=== PATIENT | female | born 1975 | race Caucasian/White ===

== ENCOUNTER 2019-03-28 09:33 | Day surgery (SDC) | payer BC ==
[2019-03-25 15:46] VITALS: BMI 29.5
[~2019-03-28 09:33] MED LIST: LACTATED RINGERS 1,000 ML IV SCH; LIDOCAINE 1% 20 ML VIAL (10MG/ML) FOR IV START INTRADERMA PRN
[2019-03-28 09:53] VITALS: RESP 16; TEMP 97
[2019-03-28] MEDS ORDERED: SUCCINYLCHOLINE CHLORIDE 100 MG/5 ML SYR IV ONE (11:05)
[2019-03-28] MEDS ORDERED: GLYCOPYRROLATE 0.2 MG/ML 2 ML VIAL ONE (11:05)
[2019-03-28] MEDS ORDERED: PROPOFOL 10 MG/ML 20 ML VIAL IV ONE (11:05)
[2019-03-28] MEDS ORDERED: fentaNYL (PF) 50 MCG/ML 2 ML AMP IV ONE (12:04)
--- NOTE | 2019-03-28 12:09 | P.PCN ---
Date of Procedure: 03/28/19 Procedure(s) Performed: Brief history: Patient is a pleasant 43-year-old white female scheduled for an elective upper endoscopy as well as colonoscopy as a part of evaluation of epigastric pain for the last few months duration. She was also diagnosed with Crohn's ileitis at age 24 and presently remains in clinical remission. She is been having intermittent rectal bleeding. Procedure performed: Esophagogastroduodenoscopy with biopsy Colonoscopy with biopsy Preoperative diagnosis: Gastric pain History of Crohn's ileitis Intermittent rectal bleeding Anesthesia: MAC Procedure: After informed consent was obtained from the patient was brought into the endoscopy unit and IV sedation was administered by anesthesia under continuous monitoring. Initially upper endoscopy was done. The Olympus GF 160 video endoscope was inserted inserted into the mouth and esophagus intubated without any difficulty and was gradually advanced into the stomach and duodenum and carefully examined. The bulb and second part of the duodenum appeared normal. The scope was then withdrawn into the stomach adequately insufflated with air and upon careful examination the antrum and mild gastritis and biopsies were done from this area. The body, cardia and fundus appeared normal. The scope was then withdrawn into the esophagus. small sliding Hiatal hernia noted. The GE junction was located at 40 cm to the incisors. There were linear erosions in the distal esophagus consistent with LA grade B reflux esophagitis. Also there was a 1 cm segment of Rowley's appearing mucosa just proximal to the GE junction that was biopsied. Rest of the esophagus appeared normal. Patient tolerated the procedure well. At this time the patient continued to remain sedation. Initial digital rectal examination was normal. Olympus CF 160 video colonoscope was then inserted into the rectum and gradually advanced to the cecum without any difficulty. Careful examination was performed as the scope was gradually being withdrawn. The prep was excellent. ileum was intubated and 20 cm visualized appeared normal. The cecum, ascending colon, transverse colon, descending colon, sigmoid colon and rectum appeared normal. Retroflexion was performed in the rectum and no lesions were noted. random biopsies were done from the terminal ileum, ascending and descending colon. Patient tolerated the procedure well. Impression: 1. Upper endoscopy revealed mild antral gastritis, small hiatal hernia, LA grade B reflux esophagitis and short segment Rowley's esophagus 2. Colonoscopy was essentially within normal limits with no evidence of colitis or colorectal neoplasia Recommendations: Findings of this examination were discussed with the patient as well as her family. She was advised to follow with the biopsy sites. She'll be seen in office in 2-3 weeks.
[2019-03-28 12:41] VITALS: BP 124/85; PULSE 64
== END 2019-03-28 13:03 | disposition home or self-care (01) ==
LOC: ORWHC2ENDO 09:33
PROVIDERS: ATTEND Internal Medicine Gastroenterology
DX: K50.011 Crohn's disease of small intestine with rectal bleeding (principal); K63.89 Other specified diseases of intestine; K29.50 Unspecified chronic gastritis without bleeding; K21.0 Gastro-esophageal reflux disease with esophagitis; K22.70 Barrett's esophagus without dysplasia; K44.9 Diaphragmatic hernia without obstruction or gangrene; M79.7 Fibromyalgia; Z91.040 Latex allergy status
CPT/HCPCS: 88305; 45380; 43239; J3010; J0330; J2704

== ENCOUNTER → 2020-07-23 | Outpatient (CLI) | payer BC ==
[2020-07-23 10:30] VITALS: BP 128/85; PULSE 82; RESP 18; TEMP 97.7
--- NOTE | 2020-07-23 10:53 | P.GSHP ---
History of Present Illness H&P Date: 07/23/20 Chief Complaint: left breast cyst Angeles is a 44 year old white female seen in consultation for DR. Bergman regarding a left breast cyst. A bilateral mammogram was performed on . This revealed a lobulated mass at the retroareolar region of the left breast 12 o'clock position measuring 3.1 cm with relatively well-defined borders. An ultrasound was then performed on 05/1820 which revealed a 4.3 x 2.9 cm cystic lesion at the 12 o'clock position. Additional smaller cyst at 1.7 cm appears to be close to this. The patient did not have any lesions noted in the right breast on her mammogram. The patient states that she was able to feel this for approximately 2 months in the lesion is the lead to giving the radiographic evaluation. She does not feel any other lumps masses or nodules in either breast. In the remote past the patient has been told she had cystic disease after ultrasound evaluation. The patient states she has bilateral breast discomfort just before her menstrual cycle started. Additionally she has discomfort in the left breast at the site of the lump. She is not complaining of any nipple discharge or skin changes. Caffeine: Tea per day as well as several bottles of pepsi nicotine: 1/2 PPD for > 30 years lo-bromine: daily hormone: none BCP: none Family history: Maternal great grandfather: Stomach cancer Hormonal history: Menarche:14 [id number]: 2, breast fed: yes, age at first : 16 periods: hysterectomy done for Crohn's disease at 36, left her ovaries BCP: 2 years, used to get injections as well Surgical history: Hysterectomy: Done secondary to Crohn's disease and she would have pain and was on able to detect if it was coming from her uterus from her bowel Exploratory laparotomies All of her teeth removed Tonsillectomy Cystic jaw Medical history: chroans disease reflux fibromyalgia Gastritis gluten intolerance Social History: nicotine: One half pack per day for greater than 30 years Alcohol: Negative Drugs: Marijuana, three times/week - Constitutional Constitutional: Reports sweats - EENT Eyes: bilateral blurred vision, bilateral pain Ears: bilateral: decreased hearing Ears, nose, mouth and throat: Reports headache - Breasts Breasts: bilateral: as per HPI - Cardiovascular Cardiovascular: Denies chest pain, Denies shortness of breath - Respiratory Comment: smoker Respiratory: Reports cough - Gastrointestinal Comment: chroans disease, GERD - Genitourinary (Female) Genitourinary: Denies dysuria, Denies hematuria - Menstruation Menstruation: Reports post hysterectomy - Musculoskeletal Comment: Fibromyalgia - Integumentary Integumentary: Denies pruritus, Denies rash - Neurological Neurological: Denies numbness, Denies weakness - Psychiatric Comment: Seasonal affective disorder, chronic fatigue - Endocrine Endocrine: Reports fatigue - Hematologic/Lymphatic Comment: none - Allergic/Immunologic Allergic/Immunologic: Reports as per HPI Past Medical History Past Medical History: Fibromyalgia, GERD/Reflux, Osteoarthritis (OA) Additional Past Medical History / Comment(s): Hepatitis A (19 yrs old), IBS, Crohns, blood in stool, nausea History of Any Multi-Drug Resistant Organisms: None Reported Past Surgical History: Hysterectomy, Tonsillectomy Additional Past Surgical History / Comment(s): Exploratory, EGD's and Colonoscopies Past Anesthesia/Blood Transfusion Reactions: No Reported Reaction Past Psychological History: Depression Additional Psychological History / Comment(s): S.A.D. Past Alcohol Use History: None Reported Additional Past Alcohol Use History / Comment(s): SMOKES 1 PPD, STARTED SMOKING AGE 11. Past Drug Use History: Marijuana Additional Drug Use History / Comment(s): CURRENT MARIJUANA USE - Past Family History Mother Family Medical History: No Reported History Medications and Allergies Home Medications Medication Instructions Recorded Confirmed Type Calcium (Unknown Dose) 1 tab PO DAILY 03/25/19 07/23/20 History Magnesium 200 mg PO DAILY 03/25/19 07/23/20 History Multivitamins, Thera [Multivitamin 1 tab PO DAILY 03/25/19 07/23/20 History (formulary)] Sulphur-3-6-9 1 cap PO DAILY 03/25/19 07/23/20 History Vitamin B-12 Injection 1 dose SQ QMONTH 03/25/19 07/23/20 History Vitamin D (Unknown Dose) 1 cap PO DAILY 03/25/19 07/23/20 History Ascorbic Acid [Vitamin C] 500 mg PO DAILY 07/23/20 07/23/20 History Omeprazole 40 mg PO DAILY 07/23/20 07/23/20 History Turmeric Root Extract [Turmeric] 500 mg PO DAILY 07/23/20 07/23/20 History Vitamin E 400 unit PO DAILY 07/23/20 07/23/20 History buPROPion HCL [Wellbutrin XL] 300 mg PO DAILY 07/23/20 07/23/20 History Allergies Allergy/AdvReac Type Severity Reaction Status Date / Time latex Allergy Unknown SWELLING, Verified 07/23/20 10:25 RASH, ITCHING Surgical - Exam BMI 34.4 - General no distress - Eyes normal ocular movement - ENT normal pinna, normal nares - Neck no masses, trachea midline - Respiratory normal expansion, normal respiratory effort, clear to auscultation - Cardiovascular Rhythm: regular Heart Sounds: normal: S1, S2 - Abdomen Abdomen: soft, bowel sounds - Integumentary normal turgor, multiple tattoos - Neurologic no disoriented, no combative - Musculoskeletal normal gait, normal posture - Psychiatric oriented to time, oriented to person, oriented to place, speech is normal, memory intact Breast Exam: BRA: 36C inspection: Grade 2 ptosis bilateral Palpation: Right breast: Multi-positional exam fibrocystic changes, no dominant masses or nodules of concern Right axilla: No adenopathy of concern Left breast: Multiple positional exam approximately 4 cm lesion at 12 o'clock position appears to be smooth-walled and most likely consistent with a cyst no other dominant masses or nodules of concern Left axilla: No adenopathy of concern Results Mammogram and ultrasound results reviewed Assessment and Plan Assessment: Impression: chroans disease reflux fibromyalgia Gastritis gluten intolerance Mass left breast 12 o'clock position Radiographic abnormality left breast 12 o'clock position most likely consistent with cyst Plan: 1. Aspiration lesion at 12:00 2. follow up 2 weeks 3. Hormone levels to determine perimenopausal status CC: Dr. Bergman encounter 45 minutes time spent in reviewing patient's records, physical examination, and counseling
--- NOTE | 2020-07-23 10:56 | P.PCN ---
Date of Procedure: 07/23/20 Preoperative Diagnosis: Mass/ cystic lesion left breast at 12:00 Postoperative Diagnosis: Same Procedure(s) Performed: Cyst aspiration 12:00 left breast Surgeon: Leyla Mojica Pathology: other (Fluid sent to pathology) Condition: stable Disposition: same day Indications for Procedure: Tender cystic lesion 12:00 left breast Description of Procedure: The area of concern in the left breast was prepped using alcohol. A 22-gauge needle and it 12 mL syringe was inserted into the area of concern. 10 mL of dark green fluid was obtained with complete resolution of the mass. Patient tolerated the procedure in stable condition. The fluid is sent for cytology. The second lesion noted on ultrasound was not palpated and the patient is going to be follow clinically at this time. The second lesion likewise appeared to be a simple cyst.
[2020-07-23 23:20] LABS: Luteinizing Hormone 4.4 mIU/mL; T4, Free (Free Thyroxine) 1.1 ng/dL (0.80-1.80)
[2020-07-23 23:21] LABS: Follicle Stimulating Hormone 3.4 mIU/mL
== END | disposition home or self-care (01) ==
LOC: WWCWWP 09:53
PROVIDERS: ATTEND Surgery
DX: N64.9 Disorder of breast, unspecified (principal)
CPT/HCPCS: 36415; 82670; 83001; 83002; 84144; 84439; 84443; 84481

== ENCOUNTER → 2020-08-06 | Outpatient (CLI) | payer BC ==
[2020-08-06 12:00] VITALS: BP 148/90; PULSE 75; RESP 18; TEMP 97.8
--- NOTE | 2020-08-06 12:15 | P.PN ---
Progress Note - Text Progress Note Date: 08/06/20 This is a 44-year-old white female who was seen on 2520 for left breast cyst evaluation. At that time a cyst was aspirated from the 12 o'clock position and was approximately 4 cm in size. Approximately 10 mL of fluid was removed with resolution of the cystic lesion. The patient states that since that time she still feels tenderness in the area, but the cyst is gone. Patient states she is likewise having some tenderness near the area of aspiration extending into her axilla. nicotine: 15 cigarets/day caffeine: 30 0z/day was taking double this Additionally the patient had laboratory studies done these include: Free T3 colon which is 3.4 reference range 2.3-4.2 Free T4: 1.1 or reference range 0.8-1.8 TSH: 2.23 Reference range 0.35-5.5 FSH 3.4 Reference range and postmenopausal females would be 16.7-113.6 Luteinizing hormone: 4.4 Reference range and postmenopausal females 15.9-54 Estradiol 314 Postmenopausal female 0-32 Progesterone: 0.4 postmenopausal 0-0.73 Physical examination: Lungs: Clear Heart: Regular rate and rhythm Left breast evaluation with particular attention to the area where the cyst was aspirated reveals fibrocystic changes but no recurrence of this the cyst at the 12 o'clock position Impression/plan: 1. I've reviewed with the patient and her her hormone levels these are not consistent with a postmenopausal profile 2. Fibrocystic breast changes no recurrence of the cyst which was aspirated on 2520 3. Repeat left breast ultrasound in 4 months with a physician exam at that time CC: Dr. Bergman
== END | disposition home or self-care (01) ==
LOC: WWCWWP 11:43
PROVIDERS: ATTEND Surgery
DX: N60.12 Diffuse cystic mastopathy of left breast (principal); F17.211 Nicotine dependence, cigarettes, in remission

== ENCOUNTER → 2020-12-16 | Outpatient (CLI) | payer BC ==
--- NOTE | 2020-12-17 11:30 | USB ---
Reason for exam: additional evaluation requested from prior study. Physical Findings: Nurse Summary: Patient complains of bilateral breast tenderness, tender lump left breast 12 o'clock with shooting pain to left axilla (nurse mj). US Breast LT Prior study comparison: June 04, 2020, mammogram. Left complete breast ultrasound includes all four quadrants, the retroareolar region and axilla. Finding demonstrates a 3.3 x 2.9 x 1.2cm benign appearing lobular, cystic lesion at 12 o'clock, a 1.7 x 1.4 x 1.1cm benign appearing, lobular, cystic lesion at 2 o'clock, a 1.2 x 1.2 x 0.6cm benign appearing, oval, cystic lesion at 2 o'clock, a 0.4 x 0.4 x 0.5cm probably benign complex, cystic cluster at 8 o'clock and a 1.8 x 1.2 x 0.9cm likely reactive lymph node at the axilla. These results were verbally communicated with the patient and result sheet given to the patient on 12/16/20. ASSESSMENT: Probably benign, BI-RAD 3 RECOMMENDATION: Ultrasound of the left breast in 6 months. Follow-up diagnostic mammogram of both breasts in 6 months. Manage on a clinical basis with regard to pain.
== END | disposition home or self-care (01) ==
LOC: RADUSWWP 08:01
PROVIDERS: ATTEND Surgery
DX: N60.02 Solitary cyst of left breast (principal)

== ENCOUNTER → 2020-12-17 | Outpatient (CLI) | payer BC ==
[2020-12-17 16:07] VITALS: BP 129/87; PULSE 82; RESP 18; TEMP 97.8
--- NOTE | 2020-12-17 16:32 | P.PN ---
Subjective Progress Note Date: 12/17/20 Principal diagnosis: Left breast pain Angeles is a 44 year old white female initially seen in consultation for DR. Bergman regarding a left breast cyst. A bilateral mammogram was performed on . This revealed a lobulated mass at the retroareolar region of the left breast 12 o'clock position measuring 3.1 cm with relatively well-defined borders. An ultrasound was then performed on 05/1820 which revealed a 4.3 x 2.9 cm cystic lesion at the 12 o'clock position. Additional smaller cyst at 1.7 cm appears to be close to this. The patient did not have any lesions noted in the right breast on her mammogram. She underwent aspiration of the lesion and 10 cc of fluid was removed with resolution of the cyst. She had an ultrasound done on 12-16-20 of the left breast which showed multiple cysts and was recommended to have a repeat ultrasound in 6 months. The patient states that she can feel the 12:00 lesion in the left breast which was aspirated in the past. She does not feel any other lumps masses or nodules that she is concerned about in her breast. The patient had a repeat ultrasound of the left breast and 7120 which revealed multiple cyst as well as a 3.3 x 2.9 cm lobular cystic lesion at 12:00. Additionally likely reactive lymph node was noted in the axilla. This was benign BIRADS 3 and repeat ultrasound in 6 months was recommended. Caffeine: Tea per day as well as several bottles of pepsi nicotine: 1/2 PPD for > 30 years lo-bromine: daily hormone: none BCP: none Family history: Maternal great grandfather: Stomach cancer Hormonal history: Menarche:14 [id number]: 2, breast fed: yes, age at first : 16 periods: hysterectomy done for Crohn's disease at 36, left her ovaries BCP: 2 years, used to get injections as well Surgical history: Hysterectomy: Done secondary to Crohn's disease and she would have pain and was on able to detect if it was coming from her uterus from her bowel Exploratory laparotomies All of her teeth removed Tonsillectomy Cystic jaw Medical history: chroans disease reflux fibromyalgia Gastritis gluten intolerance Social History: nicotine: One half pack per day for greater than 30 years Alcohol: Negative Drugs: Marijuana, three times/week - Constitutional Constitutional: Reports sweats - EENT Eyes: bilateral blurred vision, bilateral pain Ears: bilateral: decreased hearing Ears, nose, mouth and throat: Reports headache - Breasts Breasts: bilateral: as per HPI - Cardiovascular Cardiovascular: Denies chest pain, Denies shortness of breath - Respiratory Comment: smoker Respiratory: Reports cough - Gastrointestinal Comment: chroans disease, GERD - Genitourinary (Female) Genitourinary: Denies dysuria, Denies hematuria - Menstruation Menstruation: Reports post hysterectomy - Musculoskeletal Comment: Fibromyalgia - Integumentary Integumentary: Denies pruritus, Denies rash - Neurological Neurological: Denies numbness, Denies weakness - Psychiatric Comment: Seasonal affective disorder, chronic fatigue - Endocrine Endocrine: Reports fatigue - Hematologic/Lymphatic Comment: none - Allergic/Immunologic Allergic/Immunologic: Reports as per HPI Objective - Vital Signs Vital signs: Vital Signs Temp 97.8 F 12/17/20 16:02 Pulse 82 12/17/20 16:02 Resp 18 12/17/20 16:02 BP 129/87 12/17/20 16:02 Pulse Ox 96 12/17/20 16:02 Intake & Output 12/16/20 12/17/20 12/17/20 18:59 06:59 18:59 Weight 90.718 kg - Exam BMI 29.5 - Constitutional General appearance: Present: average body habitus - EENT Eyes: Present: EOMI ENT: Present: hearing grossly normal - Neck Neck: Present: normal ROM - Respiratory Respiratory: bilateral: CTA - Cardiovascular Rhythm: regular Heart sounds: normal: S1, S2 - Integumentary Integumentary: Present: normal turgor - Musculoskeletal Musculoskeletal: Present: gait normal - Psychiatric Psychiatric: Present: A&O x's 3, appropriate affect, intact judgment & insight - Additional findings Additional findings: Breasts: BRA: 38C inspection: Grade 2 ptosis bilaterally Palpation: Right breast: Multi-positional exam fibrocystic changes, no dominant masses or nodules of concern Right axilla: No adenopathy of concern Left breast: Multi-positional exam fibrocystic changes, dense breasts, tender at the 12 o'clock position the cystic lesion noted on ultrasound is not clearly palpated Left axilla: No adenopathy of concern Assessment and Plan Assessment: Impression: chroans disease reflux fibromyalgia Gastritis gluten intolerance Fibrocystic breast changes Recent left breast ultrasound cystic changes Breast pain Lifestyle modification possible with stopping smoking and decreasing further caffeine intake Consider primrose oil Plan: 1. Ultrasound-guided aspiration of breast cysts as these are tender and symptomatic on the left side Follow-up after ultrasound-guided aspiration Patient is going to consider decreasing caffeine intake and stopping smoking Patient is going to consider primrose oil CC: Dr. Euceda
== END ==
LOC: WWCWWP 15:18
PROVIDERS: ATTEND Surgery
DX: N60.12 Diffuse cystic mastopathy of left breast (principal); K50.90 Crohn's disease, unspecified, without complications; K21.9 Gastro-esophageal reflux disease without esophagitis; M79.7 Fibromyalgia; K29.70 Gastritis, unspecified, without bleeding; K90.41 Non-celiac gluten sensitivity; F17.210 Nicotine dependence, cigarettes, uncomplicated; Z91.040 Latex allergy status

== ENCOUNTER → 2021-01-07 | Day surgery (SDC) | payer BC ==
[2021-01-07 10:10] VITALS: RESP 18
--- NOTE | 2021-01-07 12:41 | USB ---
EXAMINATION TYPE: US breast aspiration single LT DATE OF EXAM: 01/07/2021 COMPARISON: 12/16/2020 CLINICAL HISTORY: Painful cyst. Aspiration requested. Findings: Left breast was scanned with ultrasound and a simple cyst is again seen at 12:00 which corresponds to the patient's area of pain. The risks, benefits and alternatives were slightly to the patient and in formed consent was obtained. The patient was prepped and draped in the normal sterile fashion. Lidocaine was administered for loca l analgesia. Under direct fluoroscopic guidance, a 14-gauge needle was inserted into the cyst and 7 m L of mckeon clear fluid was aspirated and then discarded. Patient tolerated the examination without immediate complication. IMPRESSION: Successful aspiration of a simple cyst in the left breast at 12:00. Clinical follow-up is recommended . Patient is due for her bilateral mammogram in May 2021. BI-RADS 2, benign
[2021-01-07 13:04] VITALS: BP 133/84; PULSE 63; TEMP 97.7
== END ==
LOC: RADUSWWP 09:32
PROVIDERS: ATTEND Surgery
DX: N60.02 Solitary cyst of left breast (principal)
CPT/HCPCS: 19000; 76942; J2001

== ENCOUNTER → 2021-02-25 | Outpatient (CLI) | payer BC ==
[2021-02-25 11:13] VITALS: BP 145/74; PULSE 100; RESP 18; TEMP 97.8
--- NOTE | 2021-02-25 11:24 | P.PN ---
Subjective Progress Note Date: 02/25/21 Left breast pain Angeles is a 45 year old white female initially seen in consultation for DR. Bergman regarding a left breast cyst. A bilateral mammogram was performed on . This revealed a lobulated mass at the retroareolar region of the left breast 12 o'clock position measuring 3.1 cm with relatively well-defined borders. An ultrasound was then performed on 05/1820 which revealed a 4.3 x 2.9 cm cystic lesion at the 12 o'clock position. Additional smaller cyst at 1.7 cm appears to be close to this. The patient did not have any lesions noted in the right breast on her mammogram. She underwent aspiration of the lesion and 10 cc of fluid was removed with resolution of the cyst. She had an ultrasound done on 12-16-20 of the left breast which showed multiple cysts and was recommended to have a repeat ultrasound in 6 months. The patient states that she can feel the 12:00 lesion in the left breast which was aspirated in the past. She does not feel any other lumps masses or nodules that she is concerned about in her breast. The patient had a repeat ultrasound of the left breast and 7120 which revealed multiple cyst as well as a 3.3 x 2.9 cm lobular cystic lesion at 12:00. Additionally likely reactive lymph node was noted in the axilla. This was benign BIRADS 3 and repeat ultrasound in 6 months was recommended. The patient had a cyst aspiration on of the lesion at the 12 o'clock position. The specimen was mckeon in nature and the fluid was not sent for cytology. Approximately 7 mL of fluid was removed. The patient states that there was recurrent within several weeks and is painful again at this time. This is the second time that this cyst has been aspirated. The pain is worse today before her menstrual periods starts. Patient has lost 14 pounds. She has stopped all caffeine. She has cut back on her cigarette smoking to approximately 10 cigarettes per day and despite all of this the cyst recurred. The pain is constant in nature and wakes her up at night. It does not spread anyplace. The pain is isolated to the left breast greatest in the 12 o'clock position. Caffeine: Tea per day as well as several bottles of pepsi nicotine: 1/2 PPD for > 30 years lo-bromine: daily hormone: none BCP: none Family history: Maternal great grandfather: Stomach cancer Hormonal history: Menarche:14 [id number]: 2, breast fed: yes, age at first : 16 periods: hysterectomy done for Crohn's disease at 36, left her ovaries BCP: 2 years, used to get injections as well Surgical history: Hysterectomy: Done secondary to Crohn's disease and she would have pain and was on able to detect if it was coming from her uterus from her bowel Exploratory laparotomies All of her teeth removed Tonsillectomy Cystic jaw Medical history: chroans disease reflux fibromyalgia Gastritis gluten intolerance Social History: nicotine: One half pack per day for greater than 30 years Alcohol: Negative Drugs: Marijuana, three times/week - Constitutional Constitutional: Reports sweats - EENT Eyes: bilateral blurred vision, bilateral pain Ears: bilateral: decreased hearing Ears, nose, mouth and throat: Reports headache - Breasts Breasts: bilateral: as per HPI - Cardiovascular Cardiovascular: Denies chest pain, Denies shortness of breath - Respiratory Comment: smoker Respiratory: Reports cough - Gastrointestinal Comment: chroans disease, GERD - Genitourinary (Female) Genitourinary: Denies dysuria, Denies hematuria - Menstruation Menstruation: Reports post hysterectomy - Musculoskeletal Comment: Fibromyalgia - Integumentary Integumentary: Denies pruritus, Denies rash - Neurological Neurological: Denies numbness, Denies weakness - Psychiatric Comment: Seasonal affective disorder, chronic fatigue - Endocrine Endocrine: Reports fatigue - Hematologic/Lymphatic Comment: none - Allergic/Immunologic Allergic/Immunologic: Reports as per HPI Objective - Exam BMI 33.2 - Constitutional General appearance: Present: cooperative - EENT ENT: Present: hearing grossly normal - Neck Neck: Present: normal ROM - Respiratory Respiratory: bilateral: CTA - Cardiovascular Rhythm: regular Heart sounds: normal: S1, S2 - Integumentary Integumentary: Present: normal turgor - Musculoskeletal Musculoskeletal: Present: gait normal - Psychiatric Psychiatric: Present: A&O x's 3, appropriate affect, intact judgment & insight - Additional findings Additional findings: Breast examination: Block: C 36 Inspection: Grade 2 ptosis bilateral Palpation: Right breast: Fibrocystic changes no dominant masses or nodules of concern Right axilla: No adenopathy of concern Left breast: Multi-positional exam fibrocystic changes, dense breast increased tenderness 12 o'clock position Left axilla: No adenopathy of concern Assessment and Plan Assessment: Impression: chroans disease reflux fibromyalgia Gastritis gluten intolerance breast pain plan: 1. Patient is going to modify her lifestyle and stop smoking 2. Patient will follow after mammogram 3. At this time the patient has increased discomfort in the left breast at the 12 o'clock position consistent with the area where she has fibrocystic change, I believe that this is all fibrocystic disease in nature and although the cyst has recurred twice and she may be a candidate for resection she is going to stop smoking prior to this 4. primrose oil 5. bilateral mammogram and ultrasound in May with appointment
== END ==
LOC: WWCWWP 10:58
PROVIDERS: ATTEND Surgery
DX: N64.4 Mastodynia (principal); K50.90 Crohn's disease, unspecified, without complications; K21.9 Gastro-esophageal reflux disease without esophagitis; M79.7 Fibromyalgia; K29.70 Gastritis, unspecified, without bleeding; K90.41 Non-celiac gluten sensitivity; F17.210 Nicotine dependence, cigarettes, uncomplicated; Z91.040 Latex allergy status; Z91.048 Other nonmedicinal substance allergy status

== ENCOUNTER 2022-05-24 15:29 | Emergency (ER) | payer BC ==
[2022-05-24 16:04] VITALS: TEMP 98.4
[2022-05-24] MEDS ORDERED: ONDANSETRON 4 MG/2 ML VIAL IVP STA (19:49)
[2022-05-24] MEDS ORDERED: KETOROLAC 15 MG/ML 1 ML VIAL IVP STA (19:49)
[2022-05-24] MEDS ORDERED: SODIUM CHLORIDE 0.9% 1,000 ML IV STA (19:49)
[2022-05-24] MEDS ORDERED: MORPHINE SULFATE 4 MG/ML SYRINGE IV STA (19:49)
--- NOTE | 2022-05-24 19:55 | ED ---
Abdominal Pain HPI - General Chief Complaint: Abdominal Pain Stated Complaint: Bowl Obstruction Time Seen by Provider: 05/24/22 19:40 Source: patient, RN notes reviewed Mode of arrival: ambulatory Limitations: no limitations - History of Present Illness Initial Comments: This is a 46-year-old female who presents to the emergency department for abdominal pain. Patient does have a history of Crohn's disease, and states that she has not had a flareup in several years. The pain is primarily around the umbilicus. States that the pain has been there for 1 month and she feels like something is "shooting out of her stomach". Over the last month, she has also had increasing nausea, bloating, and constipation. States that she usually has 4 bowel movements a day, however she has not had a bowel movement in 2-3 days. Prior to this, she was only going very small amounts. She has tried [id number] enemas and laxatives with little to no relief. She is not currently being treated for the Crohn's disease. She used to see Dr. Epstein, however she does not feel like they got along well and would like to find a different elementary special education teacher. Denies any fevers, chills, sore throat, cough, dyspnea, chest pain, palpitations, diarrhea, back pain, or headaches. MD Complaint: abdominal pain Onset/Timin -: month(s) Location: periumbilical Associated Symptoms: nausea, vomiting, constipation - Related Data Home Medications Medication Instructions Recorded Confirmed Calcium (Unknown Dose) 1 tab PO DAILY 03/25/19 02/25/21 Magnesium 200 mg PO DAILY 03/25/19 02/25/21 Multivitamins, Thera [Multivitamin 1 tab PO DAILY 03/25/19 02/25/21 (formulary)] Whitwell-3-6-9 1 cap PO DAILY 03/25/19 02/25/21 Vitamin B-12 Injection 1 dose SQ QMONTH 03/25/19 02/25/21 Vitamin D (Unknown Dose) 1 cap PO DAILY 03/25/19 02/25/21 Ascorbic Acid [Vitamin C] 500 mg PO DAILY 07/23/20 02/25/21 Omeprazole 40 mg PO DAILY 07/23/20 02/25/21 Vitamin E 400 unit PO DAILY 07/23/20 02/25/21 Previous Rx's Medication Instructions Recorded Ketorolac [Toradol] 10 mg PO Q6HR PRN #20 tab 05/24/22 Metoclopramide [Reglan] 10 mg PO ACHS PRN #20 tab 05/24/22 Ondansetron Odt [Zofran Odt] 4 mg PO Q8HR PRN #20 tab 05/24/22 Allergies Allergy/AdvReac Type Severity Reaction Status Date / Time latex Allergy Unknown SWELLING, Verified 05/24/22 16:04 RASH, ITCHING adhesive tape AdvReac Mild Rash/Hives Verified 05/24/22 16:04 Review of Systems ROS Statement: Those systems with pertinent positive or pertinent negative responses have been documented in the HPI. ROS Other: All systems not noted in ROS Statement are negative. Past Medical History Past Medical History: Fibromyalgia, GERD/Reflux, Osteoarthritis (OA) Additional Past Medical History / Comment(s): Hepatitis A (19 yrs old). IBS & Crohns & gastritis History of Any Multi-Drug Resistant Organisms: None Reported Past Surgical History: Hysterectomy, Tonsillectomy Additional Past Surgical History / Comment(s): Exploratory EGD's and Colonoscopies Past Anesthesia/Blood Transfusion Reactions: No Reported Reaction Past Psychological History: Depression Smoking Status: Current every day smoker Past Alcohol Use History: Occasional Past Drug Use History: Marijuana - Past Family History Mother Family Medical History: No Reported History General Exam Limitations: no limitations General appearance: alert, anxious, in distress Head exam: Present: atraumatic, normocephalic, normal inspection Respiratory exam: Present: normal lung sounds bilaterally. Absent: respiratory distress, wheezes, rales, rhonchi, stridor Cardiovascular Exam: Present: regular rate, normal rhythm, normal heart sounds. Absent: systolic murmur, diastolic murmur, rubs, gallop, clicks GI/Abdominal exam: Present: soft, tenderness (Periumbilical), hypoactive bowel sounds. Absent: distended Neurological exam: Present: alert, oriented X3, CN II-XII intact Psychiatric exam: Present: normal affect, normal mood Skin exam: Present: warm, dry, intact, normal color. Absent: rash Course Vital Signs 05/24/22 05/24/22 16:01 23:26 Temperature 98.4 F Pulse Rate 85 69 Respiratory 16 15 Rate Blood Pressure 144/80 127/68 O2 Sat by Pulse 96 100 Oximetry Medical Decision Making - Medical Decision Making This is a 46-year-old female who presents to the emergency department for abdominal pain. Lab work reveals leukocytosis and was otherwise nonactionable. Urinalysis negative for signs of infection. Computed tomography scan of the abdomen and pelvis obtained. On my interpretation she does have diffuse stool throughout with no evidence of obstruction, dilation of the bowels, or bowel wall thickening. Findings discussed with the patient and ED attending, in that her symptoms are most likely related to constipation. She is instructed to increase her fiber and fluid intake. Patient does note that she walks 5,000- 10,000 steps each day, and I encouraged her to continue to do so, and increase her activity as tolerated. Her symptoms were managed in the emergency department and she was given GoLYTELY to go home with. Instructions on how to use this were reviewed with the patient. Prescription for Zofran and Reglan provided. Advised that the Reglan can act as a gut motility stimulator which may help with the symptoms of constipation. Prescription for Toradol provided as well. Advised that if she takes this, she should avoid [id number] ibuprofen and other anti-inflammatories. Information for alternative gastroenterology provider was listed below, advised that this provider is not local and she'll have to go to [place]. However, given the Crohn's disease, she should be established with a elementary special education teacher for ongoing care. Return precautions reviewed in depth, the patient is instructed to return to the emergency department with any new, worsening, or concerning symptoms. Patient verbalized understanding. This case was discussed in detail with the attending ED physician. Presentation, findings, and treatment plan discussed in detail as well. - Lab Data Result diagrams: 05/24/22 20:34 05/24/22 20:34 Lab Results 05/24/22 05/24/22 05/24/22 Range/Units 20:34 20:34 20:34 WBC 14.6 H (3.8-10.6) k/uL RBC 4.52 (3.80-5.40) m/uL Hgb 15.0 (11.4-16.0) gm/dL Hct 42.6 (34.0-46.0) % MCV 94.1 (80.0-100.0) fL MCH 33.1 (25.0-35.0) pg MCHC 35.2 (31.0-37.0) g/dL RDW 12.8 (11.5-15.5) % Plt Count 177 (150-450) k/uL MPV 9.5 Neutrophils % (Manual) 38 % Lymphocytes % (Manual) 57 % Monocytes % (Manual) 1 % Eosinophils % (Manual) 3 % Basophils % (Manual) 1 % Neutrophils # (Manual) 5.55 (1.3-7.7) k/uL Lymphocytes # (Manual) 8.32 H (1.0-4.8) k/uL Monocytes # (Manual) 0.15 (0-1.0) k/uL Eosinophils # (Manual) 0.44 (0-0.7) k/uL Basophils # (Manual) 0.15 (0-0.2) k/uL Nucleated RBCs 0 (0-0) /100 WBC Manual Slide Review Performed RBC Morphology Normal ESR 18 (0-20) mm/hr Sodium 140 (137-145) mmol/L Potassium 4.1 (3.5-5.1) mmol/L Chloride 110 H (98-107) mmol/L Carbon Dioxide 22 (22-30) mmol/L Anion Gap 8 mmol/L BUN 19 H (7-17) mg/dL Creatinine 1.12 H (0.52-1.04) mg/dL Est GFR (CKD-EPI)AfAm 67 (>60 ml/min/1.73 sqM) Est GFR (CKD-EPI)NonAf 58 (>60 ml/min/1.73 sqM) Glucose 91 (74-99) mg/dL Plasma Lactic Acid Gustabo 0.9 (0.7-2.0) mmol/L Calcium 9.3 (8.4-10.2) mg/dL Total Bilirubin 0.4 (0.2-1.3) mg/dL AST 25 (14-36) U/L ALT 25 (4-34) U/L Alkaline Phosphatase 78 (38-126) U/L Troponin I (0.000-0.034) ng/mL C-Reactive Protein <0.5 (<1.0) mg/dL Total Protein 7.6 (6.3-8.2) g/dL Albumin 4.3 (3.5-5.0) g/dL Amylase 64 (30-110) U/L Lipase 96 (23-300) U/L Urine Color Urine Appearance (Clear) Urine pH (5.0-8.0) Ur Specific Med[place] (1.001-1.035) Urine Protein (Negative) Urine Glucose (UA) (Negative) Urine Ketones (Negative) Urine Blood (Negative) Urine Nitrite (Negative) Urine Bilirubin (Negative) Urine Urobilinogen (<2.0) mg/dL Ur Leukocyte Esterase (Negative) Urine HCG, Qual (Not Detectd) 05/24/22 05/24/22 05/24/22 Range/Units 20:34 23:19 23:19 WBC (3.8-10.6) k/uL RBC (3.80-5.40) m/uL Hgb (11.4-16.0) gm/dL Hct (34.0-46.0) % MCV (80.0-100.0) fL MCH (25.0-35.0) pg MCHC (31.0-37.0) g/dL RDW (11.5-15.5) % Plt Count (150-450) k/uL MPV Neutrophils % (Manual) % Lymphocytes % (Manual) % Monocytes % (Manual) % Eosinophils % (Manual) % Basophils % (Manual) % Neutrophils # (Manual) (1.3-7.7) k/uL Lymphocytes # (Manual) (1.0-4.8) k/uL Monocytes # (Manual) (0-1.0) k/uL Eosinophils # (Manual) (0-0.7) k/uL Basophils # (Manual) (0-0.2) k/uL Nucleated RBCs (0-0) /100 WBC Manual Slide Review RBC Morphology ESR (0-20) mm/hr Sodium (137-145) mmol/L Potassium (3.5-5.1) mmol/L Chloride (98-107) mmol/L Carbon Dioxide (22-30) mmol/L Anion Gap mmol/L BUN (7-17) mg/dL Creatinine (0.52-1.04) mg/dL Est GFR (CKD-EPI)AfAm (>60 ml/min/1.73 sqM) Est GFR (CKD-EPI)NonAf (>60 ml/min/1.73 sqM) Glucose (74-99) mg/dL Plasma Lactic Acid Gustabo (0.7-2.0) mmol/L Calcium (8.4-10.2) mg/dL Total Bilirubin (0.2-1.3) mg/dL AST (14-36) U/L ALT (4-34) U/L Alkaline Phosphatase (38-126) U/L Troponin I <0.012 (0.000-0.034) ng/mL C-Reactive Protein (<1.0) mg/dL Total Protein (6.3-8.2) g/dL Albumin (3.5-5.0) g/dL Amylase (30-110) U/L Lipase (23-300) U/L Urine Color Light Yellow Urine Appearance Clear (Clear) Urine pH 6.0 (5.0-8.0) Ur Specific Med[place] >1.050 H (1.001-1.035) Urine Protein Negative (Negative) Urine Glucose (UA) Negative (Negative) Urine Ketones Negative (Negative) Urine Blood Negative (Negative) Urine Nitrite Negative (Negative) Urine Bilirubin Negative (Negative) Urine Urobilinogen <2.0 (<2.0) mg/dL Ur Leukocyte Esterase Negative (Negative) Urine HCG, Qual Not Detected (Not Detectd) - Radiology Data Radiology results: report reviewed, image reviewed Disposition Clinical Impression: Constipation, Abdominal pain Disposition: HOME SELF-CARE Instructions (If sedation given, give patient instructions): Polyethylene Glycol 3350/Electrolytes (By mouth), Constipation (ED), Abdominal Pain (ED) Additional Instructions: Return to the emergency department with any new, worsening, or concerning symptoms. The Zofran and Reglan are used to treat nausea and vomiting. The Reglan is also shown to have effects that may help with constipation. Increase your water and fiber intake and use the GoLYTELY solution as instructed for a complete bowel clean out. You can take the Toradol up to every 6 hours as needed for pain. If you choose to take this, do not take ibuprofen or other [id number] anti-inflammatories. I listed another elementary special education teacher in [place], [place], who you can contact to become established with as a new patient. Follow up with your primary care provider in 1-2 days. Prescriptions: Metoclopramide [Reglan] 10 mg PO ACHS PRN #20 tab PRN Reason: Nausea And Vomiting Ketorolac [Toradol] 10 mg PO Q6HR PRN #20 tab PRN Reason: Pain Ondansetron Odt [Zofran Odt] 4 mg PO Q8HR PRN #20 tab PRN Reason: Nausea And Vomiting Is patient prescribed a controlled substance at d/c from ED?: No Referrals: Tristan Bergman MD [Primary Care Provider] - 1-2 days Artur Connolly MD [REFERRING] - 1-2 days
[2022-05-24 20:42] LABS: HCT 42.6 % (34.0-46.0); MCH 33.1 pg (25.0-35.0); MCHC 35.2 g/dL (31.0-37.0); MCV 94.1 fL (80.0-100.0); Mean Platelet Volume 9.5; Platelet Count 177 k/uL (150-450); RBC 4.52 m/uL (3.80-5.40); RDW 12.8 % (11.5-15.5); WBC 14.6 k/uL (3.8-10.6)
[2022-05-24 20:57] LABS: ALT 25 U/L (4-34); AST 25 U/L (14-36); African American GFR (CKD) 67 (>60 ml/min/1.73 sqM); Albumin 4.3 g/dL (3.5-5.0); Alkaline Phosphatase 78 U/L (38-126); Amylase 64 U/L (30-110); Anion Gap 8 mmol/L; Blood Urea Nitrogen 19 mg/dL (7-17); C Reactive Protein <0.5 mg/dL (<1.0); Calcium 9.3 mg/dL (8.4-10.2); Carbon Dioxide 22 mmol/L (22-30); Chloride 110 mmol/L (98-107); Glucose 91 mg/dL (74-99); Lipase 96 U/L (23-300); Non-African American GFR(CKD) 58 (>60 ml/min/1.73 sqM); Potassium 4.1 mmol/L (3.5-5.1); Sodium 140 mmol/L (137-145); Total Bilirubin 0.4 mg/dL (0.2-1.3); Total Protein 7.6 g/dL (6.3-8.2)
[2022-05-24 21:20] LABS: Basophils # (M) 0.15 k/uL (0-0.2); Eosinophils # (M) 0.44 k/uL (0-0.7); Lymphocytes # (M) 8.32 k/uL (1.0-4.8); Monocytes # (M) 0.15 k/uL (0-1.0); Neutrophils # (M) 5.55 k/uL (1.3-7.7); Neutrophils % (M) 38 %; Nucleated Red Blood Cells 0 /100 WBC (0-0); Total Cells Counted 100
[2022-05-24 21:25] LABS: RBC Morphology Normal
--- NOTE | 2022-05-24 21:35 | CT ---
EXAMINATION TYPE: CT abdomen pelvis w con DATE OF EXAM: 05/24/2022 COMPARISON: None HISTORY: Abdominal pain, bloating, constipation. Unable to urinate CT DLP: 1361.7 mGycm Automated exposure control for dose reduction was used. CONTRAST: Performed with IV Contrast, patient injected with 100cc mL of Isovue 300. Images obtained from the diaphragm to the floor the pelvis with IV contrast. Lung bases are clear. No pleural effusion. Heart size is normal. No pericardial effusion. Liver spleen and stomach pancreas gallbladder appear intact. The bile ducts are nondilated. There is no adrenal mass. Kidneys show satisfactory contrast opacification. No hydronephrosis. Ureter s are not dilated. No retroperitoneal adenopathy. The bladder distends smoothly. No inguinal hernia. No free fluid in the pelvis. No pelvic mass. There is no mesenteric edema. No ascites or free air. No sign of a bowel obstruction. Delayed images show normal renal excretion. The appendix is inferior and appears normal. There are small calcificati ons at the tip of the cecum. The lumbar vertebrae have normal alignment. There is degenerative disc space narrowing at L4-5 with s pur formation. No lumbar compression fracture. Posterior element are intact. Facet joints are intact. IMPRESSION: Negative CT scan abdomen and pelvis. Normal appendix. No evidence of any significant constipation.
[2022-05-24 21:36] LABS: Erythrocyte Sedimentation Rate 18 mm/hr (0-20)
[2022-05-24] MEDS ORDERED: PEG 3350 (236 GM/BTL) + LYTES 4,000 ML BOTTLE PO ONE (22:00)
[2022-05-24] MEDS ORDERED: ONDANSETRON 4 MG ODT STARTER PACK 2 TAB BTL PO STA (23:09)
[2022-05-24 23:27] VITALS: BP 127/68; PULSE 69; RESP 15
[2022-05-25 00:45] LABS: Appearance,Urine Clear (Clear); Bilirubin,Urine Negative (Negative); Blood,Urine Negative (Negative); Color,Urine Light Yellow; Glucose,Urine (UA) Negative (Negative); Ketones,Urine Negative (Negative); Leukocyte Esterase,Urine Negative (Negative); Nitrite,Urine Negative (Negative); Protein,Urine Negative (Negative); Urobilinogen,Urine <2.0 mg/dL (<2.0)
[2022-05-25 01:08] LABS: Specific Gravity,Urine >1.050 (1.001-1.035)
== END 2022-05-24 23:41 | disposition home or self-care (01) ==
LOC: EC 15:29
DX: K59.00 Constipation, unspecified (principal); R10.9 Unspecified abdominal pain; K21.9 Gastro-esophageal reflux disease without esophagitis; M19.90 Unspecified osteoarthritis, unspecified site; F17.200 Nicotine dependence, unspecified, uncomplicated; F32.A Depression, unspecified; F12.90 Cannabis use, unspecified, uncomplicated; Z91.040 Latex allergy status; Z91.09 Other allergy status, other than to drugs and biological substances; Z79.1 Long term (current) use of non-steroidal anti-inflammatories (NSAID); Z79.899 Other long term (current) drug therapy
CPT/HCPCS: 36415; 80053; 85652; 82150; 83605; 83690; 84484; 85025; 86140; 81003; 81025; 74177; 99284; 96374; 96375 ×2; 96361; J2270; J2405; J1885; S0119; Q9967

== ENCOUNTER 2022-05-26 21:19 | Observation (INO) | payer BC ==
[2022-05-26] MEDS ORDERED: SODIUM CHLORIDE 0.9% 1,000 ML IV STA (21:47)
[2022-05-26] MEDS ORDERED: MORPHINE SULFATE 4 MG/ML SYRINGE IVP STA (21:48)
[2022-05-26] MEDS ORDERED: PANTOPRAZOLE 40 MG/10 ML VIAL IVP STA (21:48)
--- NOTE | 2022-05-26 22:11 | XR ---
EXAMINATION TYPE: XR chest 2V DATE OF EXAM: 05/26/2022 9:51 PM COMPARISON: None TECHNIQUE: XR chest 2V Frontal and lateral views of the chest. CLINICAL INDICATION:Female, 46 years old with history of Chest Pain; FINDINGS: Lungs/Pleura: There is no evidence of pleural effusion, focal consolidation, or pneumothorax. Pulmonary vascularity: Unremarkable. Heart/mediastinum: Cardiomediastinal silhouette is unremarkable. Musculoskeletal: No acute osseous pathology. IMPRESSION: No acute cardiopulmonary disease/process.
[2022-05-26] MEDS ORDERED: HYDROmorphone 1 MG/ML 1 ML SYRINGE IVP STA (22:22)
[2022-05-26] MEDS ORDERED: LORazepam 2 MG/ML INJ IV STA (22:23)
[2022-05-26 22:24] LABS: Basophils # (A) 0.1 k/uL (0-0.2); Basophils % (A) 1 %; Eosinophils # (A) 0.3 k/uL (0-0.7); Eosinophils % (A) 3 %; HCT 44.3 % (34.0-46.0); HGB 15.3 gm/dL (11.4-16.0); Lymphocytes # (A) 5.7 k/uL (1.0-4.8); Lymphocytes % (A) 47 %; MCH 32.4 pg (25.0-35.0); MCHC 34.5 g/dL (31.0-37.0); MCV 93.9 fL (80.0-100.0); Mean Platelet Volume 9.4; Monocytes # (A) 0.6 k/uL (0-1.0); Monocytes % (A) 5 %; Neutrophils % (A) 42 %; Platelet Count 200 k/uL (150-450); RBC 4.72 m/uL (3.80-5.40); RDW 12.5 % (11.5-15.5)
[2022-05-26 22:35] LABS: Albumin 4.5 g/dL (3.5-5.0); Calcium 9.6 mg/dL (8.4-10.2); Magnesium 1.9 mg/dL (1.6-2.3); Potassium 3.8 mmol/L (3.5-5.1); Total Bilirubin 0.3 mg/dL (0.2-1.3); Total Protein 7.6 g/dL (6.3-8.2)
[2022-05-26 22:36] LABS: INR 0.9 (<1.2); Partial Thromboplastin Time 24.4 sec (22.0-30.0); Prothrombin Time 9.4 sec (9.0-12.0)
--- NOTE | 2022-05-26 23:26 | CT ---
EXAMINATION TYPE: CT chest angio for PE DATE OF EXAM: 05/26/2022 COMPARISON: None HISTORY: Extreme right sided chest pain CT DLP: 401.5 mGycm Automated exposure control for dose reduction was used. CONTRAST: Performed with IV Contrast, patient injected with 80 mL of Isovue 300. There are Three-D postprocessed images. The lungs are clear of infiltrate. No pleural effusion. There is no mediastinal adenopathy. There are no hilar masses. Heart size is normal. No pericardial effusion. There are no filling defects in the pulmonary arteries. Thoracic aorta is intact. No sign of aneurysm or dissection. The thoracic spine is intact. No compression fracture. Sternum is intact. IMPRESSION: Negative CT angiogram of the chest. No evidence of pulmonary embolism.
[2022-05-27] MEDS ORDERED: NALOXONE 0.4 MG/ML 1 ML VIAL IV PRN (00:50)
--- NOTE | 2022-05-27 00:50 | ED ---
General Adult HPI - General Chief complaint: Chest Pain Stated complaint: Chest Pain Source: patient Mode of arrival: ambulatory Limitations: no limitations - History of Present Illness Initial comments: 46-year-old female with past medical history of Crohn's disease who presents to the emergency department with chest pain. Patient states that she had sudden onset of substernal chest pain with radiation straight into her back. Pain was graded as 10 out of 10 and sharp. States that she felt short of breath. He denies previous history of cardiac disease. Patient arrives in extreme discomfort. Denies history of similar pain in the past but does admit to abdominal pain which she was seen in the emergency room in 2 days ago for. She was diagnosed constipation and discharged home with [facility]. States that she took the medications as directed and was able to have a bowel movement. Does not feel like this pain is consistent with the pain that she is experiencing t omid. She denies nausea or vomiting. No hematemesis. No chills or cough. Denies abdominal pain today. No changes in her bowel or bladder habits. Other alleviating, precipitating or modifying factors - Related Data Home Medications Medication Instructions Recorded Confirmed Omeprazole 40 mg PO DAILY 07/23/20 05/26/22 Gabapentin [Neurontin] 400 mg PO TID 05/26/22 05/26/22 Ondansetron Odt [Zofran Odt] 4 mg SL Q8HR PRN 05/26/22 05/26/22 Percocet (Unknown Strength) 1 tab PO Q6H PRN 05/26/22 05/26/22 Phentermine HCl [Adipex-P] 37.5 mg PO DAILY 05/26/22 05/26/22 buPROPion XL [Wellbutrin XL] 150 mg PO DAILY 05/26/22 05/26/22 Previous Rx's Medication Instructions Recorded Ketorolac [Toradol] 10 mg PO Q6HR PRN #20 tab 05/24/22 Metoclopramide [Reglan] 10 mg PO ACHS PRN #20 tab 05/24/22 Allergies Allergy/AdvReac Type Severity Reaction Status Date / Time latex Allergy Unknown SWELLING, Verified 05/26/22 22:18 RASH, ITCHING adhesive tape AdvReac Mild Rash/Hives Verified 05/26/22 22:18 Review of Systems ROS Statement: Those systems with pertinent positive or pertinent negative responses have been documented in the HPI. ROS Other: All systems not noted in ROS Statement are negative. Past Medical History Past Medical History: Fibromyalgia, GERD/Reflux, Osteoarthritis (OA) Additional Past Medical History / Comment(s): Hepatitis A (19 yrs old). IBS & Crohns & gastritis History of Any Multi-Drug Resistant Organisms: None Reported Past Surgical History: Hysterectomy, Tonsillectomy Additional Past Surgical History / Comment(s): Exploratory EGD's and Colonoscopies Past Anesthesia/Blood Transfusion Reactions: No Reported Reaction Past Psychological History: Depression Smoking Status: Current every day smoker Past Alcohol Use History: Occasional Past Drug Use History: Marijuana - Past Family History Mother Family Medical History: No Reported History General Exam Limitations: no limitations Course Vital Signs 05/26/22 05/27/22 21:22 01:03 Temperature 97.1 F L Pulse Rate 113 H 83 Respiratory 46 H 18 Rate Blood Pressure 138/80 123/68 O2 Sat by Pulse 100 98 Oximetry EKG Findings - EKG Comments: EKG Findings:: EKG done at 2131 demonstrates sinus tachycardia with a rate of 107. QRS 94. QTC of 398. No acute ST segment elevations or depressions EKG is interpreted by myself. Repeat EKG when calm at 2321 demonstrates a sinus rhythm with a rate of 86. LA interval 182. QRS 96. QTC of 420. No acute ST segment elevations or depressions repeat EKG interpreted by myself Medical Decision Making - Medical Decision Making On arrival patient was placed into room 2. A thorough history and physical exam is performed. She is placed on continuous pulse ox and cardiac monitoring. 12-lead EKG was obtained. IV access is established. Laboratory studies are conducted. Chest x-ray was originally performed and followed by a CT of the chest due to elevated d-dimer. Laboratory studies are reviewed and demonstrated an elevated lactic acid 2.8. Patient was given a liter bolus of normal saline, 1 mg of Dilaudid and 1 mg of Ativan. She is found resting comfortably in the exam room. I did discuss the diagnosis, differential and treatment options. No signs of PE on CT. I did recommend admission for chest pain rule out. Patient will be admitted to Dr. Park - Lab Data Result diagrams: 05/26/22 21:31 05/26/22 21:31 Lab Results 05/26/22 05/26/22 05/26/22 Range/Units 21:31 21:31 21:31 WBC 12.0 H (3.8-10.6) k/uL RBC 4.72 (3.80-5.40) m/uL Hgb 15.3 (11.4-16.0) gm/dL Hct 44.3 (34.0-46.0) % MCV 93.9 (80.0-100.0) fL MCH 32.4 (25.0-35.0) pg MCHC 34.5 (31.0-37.0) g/dL RDW 12.5 (11.5-15.5) % Plt Count 200 (150-450) k/uL MPV 9.4 Neutrophils % 42 % Lymphocytes % 47 % Monocytes % 5 % Eosinophils % 3 % Basophils % 1 % Neutrophils # 5.0 (1.3-7.7) k/uL Lymphocytes # 5.7 H (1.0-4.8) k/uL Monocytes # 0.6 (0-1.0) k/uL Eosinophils # 0.3 (0-0.7) k/uL Basophils # 0.1 (0-0.2) k/uL PT 9.4 (9.0-12.0) sec INR 0.9 (<1.2) APTT 24.4 (22.0-30.0) sec D-Dimer 0.76 H (<0.60) mg/L FEU Sodium 142 (137-145) mmol/L Potassium 3.8 (3.5-5.1) mmol/L Chloride 108 H (98-107) mmol/L Carbon Dioxide 18 L (22-30) mmol/L Anion Gap 16 mmol/L BUN 13 (7-17) mg/dL Creatinine 0.90 (0.52-1.04) mg/dL Est GFR (CKD-EPI)AfAm 88 (>60 ml/min/1.73 sqM) Est GFR (CKD-EPI)NonAf 76 (>60 ml/min/1.73 sqM) Glucose 100 H (74-99) mg/dL Lactic Ac Sepsis Rflx Plasma Lactic Acid Gustabo (0.7-2.0) mmol/L Calcium 9.6 (8.4-10.2) mg/dL Magnesium 1.9 (1.6-2.3) mg/dL Total Bilirubin 0.3 (0.2-1.3) mg/dL AST 67 H (14-36) U/L ALT 38 H (4-34) U/L Alkaline Phosphatase 94 (38-126) U/L Troponin I (0.000-0.034) ng/mL NT-Pro-B Natriuret Pep pg/mL Total Protein 7.6 (6.3-8.2) g/dL Albumin 4.5 (3.5-5.0) g/dL Lipase 206 (23-300) U/L 05/26/22 05/26/22 05/26/22 Range/Units 21:31 21:54 21:54 WBC (3.8-10.6) k/uL RBC (3.80-5.40) m/uL Hgb (11.4-16.0) gm/dL Hct (34.0-46.0) % MCV (80.0-100.0) fL MCH (25.0-35.0) pg MCHC (31.0-37.0) g/dL RDW (11.5-15.5) % Plt Count (150-450) k/uL MPV Neutrophils % % Lymphocytes % % Monocytes % % Eosinophils % % Basophils % % Neutrophils # (1.3-7.7) k/uL Lymphocytes # (1.0-4.8) k/uL Monocytes # (0-1.0) k/uL Eosinophils # (0-0.7) k/uL Basophils # (0-0.2) k/uL PT (9.0-12.0) sec INR (<1.2) APTT (22.0-30.0) sec D-Dimer (<0.60) mg/L FEU Sodium (137-145) mmol/L Potassium (3.5-5.1) mmol/L Chloride (98-107) mmol/L Carbon Dioxide (22-30) mmol/L Anion Gap mmol/L BUN (7-17) mg/dL Creatinine (0.52-1.04) mg/dL Est GFR (CKD-EPI)AfAm (>60 ml/min/1.73 sqM) Est GFR (CKD-EPI)NonAf (>60 ml/min/1.73 sqM) Glucose (74-99) mg/dL Lactic Ac Sepsis Rflx Plasma Lactic Acid Gustabo 2.8 H* (0.7-2.0) mmol/L Calcium (8.4-10.2) mg/dL Magnesium (1.6-2.3) mg/dL Total Bilirubin (0.2-1.3) mg/dL AST (14-36) U/L ALT (4-34) U/L Alkaline Phosphatase (38-126) U/L Troponin I <0.012 (0.000-0.034) ng/mL NT-Pro-B Natriuret Pep 148 pg/mL Total Protein (6.3-8.2) g/dL Albumin (3.5-5.0) g/dL Lipase (23-300) U/L 05/26/22 Range/Units 22:44 WBC (3.8-10.6) k/uL RBC (3.80-5.40) m/uL Hgb (11.4-16.0) gm/dL Hct (34.0-46.0) % MCV (80.0-100.0) fL MCH (25.0-35.0) pg MCHC (31.0-37.0) g/dL RDW (11.5-15.5) % Plt Count (150-450) k/uL MPV Neutrophils % % Lymphocytes % % Monocytes % % Eosinophils % % Basophils % % Neutrophils # (1.3-7.7) k/uL Lymphocytes # (1.0-4.8) k/uL Monocytes # (0-1.0) k/uL Eosinophils # (0-0.7) k/uL Basophils # (0-0.2) k/uL PT (9.0-12.0) sec INR (<1.2) APTT (22.0-30.0) sec D-Dimer (<0.60) mg/L FEU Sodium (137-145) mmol/L Potassium (3.5-5.1) mmol/L Chloride (98-107) mmol/L Carbon Dioxide (22-30) mmol/L Anion Gap mmol/L BUN (7-17) mg/dL Creatinine (0.52-1.04) mg/dL Est GFR (CKD-EPI)AfAm (>60 ml/min/1.73 sqM) Est GFR (CKD-EPI)NonAf (>60 ml/min/1.73 sqM) Glucose (74-99) mg/dL Lactic Ac Sepsis Rflx Y Plasma Lactic Acid Gustabo (0.7-2.0) mmol/L Calcium (8.4-10.2) mg/dL Magnesium (1.6-2.3) mg/dL Total Bilirubin (0.2-1.3) mg/dL AST (14-36) U/L ALT (4-34) U/L Alkaline Phosphatase (38-126) U/L Troponin I (0.000-0.034) ng/mL NT-Pro-B Natriuret Pep pg/mL Total Protein (6.3-8.2) g/dL Albumin (3.5-5.0) g/dL Lipase (23-300) U/L Disposition Clinical Impression: Chest pain Disposition: ADMITTED IP TO THIS HOSP Condition: Stable Is patient prescribed a controlled substance at d/c from ED?: No Time of Disposition: 00:50 Decision to Admit Reason: Admit from EC Decision Date: 05/27/22 Decision Time: 00:50
[2022-05-27] MEDS ORDERED: ASPIRIN 81 MG PO STA (01:16)
[2022-05-27 07:54] VITALS: BP 126/85; PULSE 72; RESP 18; TEMP 79.5
--- NOTE | 2022-05-27 08:52 | P.CRDCN ---
History of Present Illness Consult date: 05/27/22 Chief complaint: Chest pain History of present illness: This is a very pleasant 46-year-old female patient with a past medical history significant for Crohn disease and history of smoking presented to the emergency department complaining of chest discomfort. She presented to the emergency department few days ago experiencing severe constipation. At that point she was prescribed some medication she was discharged in stable medical condition. She presented back complaining of chest discomfort. The discomfort was on the right upper chest with no radiation andhis symptoms and lasted about half an hour and then resolved completely. She underwent further investigation including an EKG showing sinus rhythm with no significant ST or T-wave abnormalities and troponin came in to be unremarkable. Currently the patient is chest pain-free. Chest x- ray showed no acute abnormalities. The d-dimer was checked and came in to be abnormal but subsequently CT of the chest showed no pulmonary embolism. On examination the patient does have reproducible chest discomfort at the right upper chest. No history of coronary artery disease or congestive heart failure or cardiac arrhythmia Past Medical History Past Medical History: Fibromyalgia, GERD/Reflux, Osteoarthritis (OA) Additional Past Medical History / Comment(s): Hepatitis A (19 yrs old). IBS & Crohns & gastritis History of Any Multi-Drug Resistant Organisms: None Reported Past Surgical History: Hysterectomy, Tonsillectomy Additional Past Surgical History / Comment(s): Exploratory EGD's and Colonoscopies Past Anesthesia/Blood Transfusion Reactions: No Reported Reaction Past Psychological History: Depression Smoking Status: Current every day smoker Past Alcohol Use History: Occasional Past Drug Use History: Marijuana - Past Family History Mother Family Medical History: No Reported History Medications and Allergies Home Medications Medication Instructions Recorded Confirmed Type Omeprazole 40 mg PO DAILY 07/23/20 05/26/22 History Ketorolac [Toradol] 10 mg PO Q6HR PRN #20 tab 05/24/22 05/26/22 Rx Metoclopramide [Reglan] 10 mg PO ACHS PRN #20 tab 05/24/22 05/26/22 Rx Gabapentin [Neurontin] 400 mg PO TID 05/26/22 05/26/22 History Ondansetron Odt [Zofran Odt] 4 mg SL Q8HR PRN 05/26/22 05/26/22 History Percocet (Unknown Strength) 1 tab PO Q6H PRN 05/26/22 05/26/22 History Phentermine HCl [Adipex-P] 37.5 mg PO DAILY 05/26/22 05/26/22 History buPROPion XL [Wellbutrin XL] 150 mg PO DAILY 05/26/22 05/26/22 History Allergies Allergy/AdvReac Type Severity Reaction Status Date / Time latex Allergy Unknown SWELLING, Verified 05/26/22 22:18 RASH, ITCHING adhesive tape AdvReac Mild Rash/Hives Verified 05/26/22 22:18 Physical Exam Vitals: Vital Signs Temp Pulse Pulse Resp BP BP Pulse Ox 05/27/22 08:00 97 05/27/22 07:00 79.5 F L 72 18 126/85 98 05/27/22 02:07 97.8 F 87 17 129/88 98 05/27/22 01:03 83 18 123/68 98 05/26/22 21:22 97.1 F L 113 H 46 H 138/80 100 Intake and Output 05/26/22 05/27/22 05/27/22 22:59 06:59 14:59 Other: # Voids 1 Weight 90.718 kg 90.718 kg - Constitutional General appearance: no acute distress - Respiratory Respiratory: bilateral: CTA - Cardiovascular Rhythm: regular Heart sounds: normal: S1, S2 Results 05/26/22 21:31 05/26/22 21:31 Cardiac Enzymes 05/26/22 05/26/22 05/27/22 Range/Units 21:31 21:31 04:23 AST 67 H (14-36) U/L Troponin I <0.012 <0.012 (0.000-0.034) ng/mL 05/27/22 Range/Units 07:14 AST (14-36) U/L Troponin I <0.012 (0.000-0.034) ng/mL Coagulation 05/26/22 Range/Units 21:31 PT 9.4 (9.0-12.0) sec APTT 24.4 (22.0-30.0) sec CBC 05/26/22 Range/Units 21:31 WBC 12.0 H (3.8-10.6) k/uL RBC 4.72 (3.80-5.40) m/uL Hgb 15.3 (11.4-16.0) gm/dL Hct 44.3 (34.0-46.0) % Plt Count 200 (150-450) k/uL Comprehensive Metabolic Panel 05/26/22 Range/Units 21:31 Sodium 142 (137-145) mmol/L Potassium 3.8 (3.5-5.1) mmol/L Chloride 108 H (98-107) mmol/L Carbon Dioxide 18 L (22-30) mmol/L BUN 13 (7-17) mg/dL Creatinine 0.90 (0.52-1.04) mg/dL Glucose 100 H (74-99) mg/dL Calcium 9.6 (8.4-10.2) mg/dL AST 67 H (14-36) U/L ALT 38 H (4-34) U/L Alkaline Phosphatase 94 (38-126) U/L Total Protein 7.6 (6.3-8.2) g/dL Albumin 4.5 (3.5-5.0) g/dL Current Medications Generic Name Dose Route Start Last Admin Trade Name Freq PRN Reason Stop Dose Admin Naloxone HCl 0.2 mg 05/27/22 00:50 Naloxone 0.4 Mg/Ml 1 Ml Vial IV Q2M PRN Opioid Reversal Intake and Output 05/26/22 05/27/22 05/27/22 22:59 06:59 14:59 Other: # Voids 1 Weight 90.718 kg 90.718 kg 05/26/22 21:31 05/26/22 21:31 Assessment and Plan Assessment: Assessment Noncardiac chest discomfort. The patient does have reproducible chest pain on examination History of smoking History of Crohn disease Plan Acute coronary event was ruled out Back to get the patient up and around and physically active and if she is asymptomatic she potentially can be discharged home and that which she would like Consider stress test as an outpatient
[2022-05-27] MEDS ORDERED: METOCLOPRAMIDE 10 MG TAB PO PRN (10:40)
[2022-05-27] MEDS ORDERED: PERCOCET PO PRN (10:40)
[2022-05-27] MEDS ORDERED: GABAPENTIN 400 MG CAP PO SCH (10:45)
[2022-05-27] MEDS ORDERED: buPROPion XL 150 MG TAB.ER.24H PO SCH (10:45)
[2022-05-27] MEDS ORDERED: PANTOPRAZOLE 40 MG TABLET PO SCH (10:45)
[2022-05-27] MEDS ORDERED: NON FORMULARY DRUG (Phentermine Hcl [Adipex-P] 37.5 MG Tablet) PO SCH (10:45)
--- NOTE | 2022-05-27 13:56 | P.HPIM ---
History of Present Illness H&P Date: 05/27/22 Chief Complaint: Sharp chest pain This is a pleasant 46-year-old patient, follows with Dr. Tristan Bergman. Chronic stable medical conditions include fibromyalgia, GERD, arthritis, irritable bowel syndrome, Crohn's disease, gastritis. In the past patient has followed up with Dr. Abimael Epstein from GI and wants to change her gastroneurologist. Patient was in the bath tub yesterday and she felt a walker was about a heart. Started feeling a sharp pain in the midsternal area. Like a pressure ulcer. Did come to the right arm. Some shortness of breath dizziness lightheadedness. Last her for about 2 hours. She felt the bath tub water was rather hard. Was in there for about 20 minutes. No prior cardiac history. This is significant GERD symptoms. Is a smoker. She has no fixed ballpark because of her Crohn's. Does not follow anybody specifically. Recently she was on the constipated had to be given a laxative. As a loss to 3 days she's having anemia around 5 bowel movements a day. Patient is accompanied by her in the room. Review of systems: GEN.: Tired EYES: None HEENT: None NECK: None RESPIRATORY: None CARDIOVASCULAR: None GASTROINTESTINAL: As above GENITOURINARY: None MUSCULOSKELETAL: Joint pains LYMPHATICS: None HEMATOLOGICAL: None PSYCHIATRY: [Bit anxious NEUROLOGICAL: None Past medical history to include: Fibromyalgia, GERD, irritable bowel syndrome, Crohn's disease, gastritis, depression Social history: . Doesn't marijuana joint every day. Smoking a pack a day for last 35 years. Family history: Reviewed, noncontributory to presentation Physical examination: VITAL SIGNS: 97.5, 72, 18, 126/85, 98% room air GENERAL: BMI 29.5, laying in bed awake, comfortable multiple tattoos. EYES: Pupils equal. Conjunctiva normal. HEENT: External appearance of nose and ears normal, oral cavity grossly normal. NECK: JVD not raised; masses not palpable. HEART: First and second heart sounds are normal; no edema. LUNGS: Respiratory rate normal; clear to auscultation. ABDOMEN: Soft, nontender, liver spleen not palpable, no masses palpable. PSYCH: Alert and oriented x3; mood and affect normal. MUSCULOSKELETAL:No Clubbing/cyanosis;muscles-grossly intact. Significant reproducible tenderness on the lower sternum, costochondral junction NEUROLOGICAL: Cranial nerves grossly intact; no facial asymmetry, power and sensation grossly intact. LYMPHATICS: No lymph nodes palpable in the axilla and neck INVESTIGATIONS, reviewed in the clinical context: White count 12 hemoglobin 15.3 platelets 200 sodium 142 potassium 3.8 creatinine 0.9 Lactic acid 2.8 AST 67 ALT 38 Troponin I less than 0.0122 EKG tracing personally reviewed by me-normal sinus rhythm. Rate 86 Chest x-ray film personally reviewed by me-no infiltrates CT chest angiogram for PE: Negative Assessment and plan: -Anterior chest wall pain of sudden onset sharp reproducible.. Possible acute costochondritis. Some other associated symptoms may be suggested of a cardiac cause. Patient's cardiac risk factors include smoking -Chronic fibromyalgia -Irritable bowel syndrome -Chronic Crohn's disease Follow-up with a cloth grader -Suspect underlying esophagitis/gastritis. Patient to have an EGD. We'll follow-up with her PCP to arrange the same. -Chronic nicotine dependence, cigarette smoker Nicotine patch 21 -Recreational marijuana use Nicotine patch. Resume home medications. Telemetry. Cardiology consulted. Care was discussed with the patient and at the bedside. Past Medical History Past Medical History: Fibromyalgia, GERD/Reflux, Osteoarthritis (OA) Additional Past Medical History / Comment(s): Hepatitis A (19 yrs old). IBS & Crohns & gastritis History of Any Multi-Drug Resistant Organisms: None Reported Past Surgical History: Hysterectomy, Tonsillectomy Additional Past Surgical History / Comment(s): Exploratory EGD's and Colonoscopies Past Anesthesia/Blood Transfusion Reactions: No Reported Reaction Past Psychological History: Depression Smoking Status: Current every day smoker Past Alcohol Use History: Occasional Past Drug Use History: Marijuana - Past Family History Mother Family Medical History: No Reported History Medications and Allergies Home Medications Medication Instructions Recorded Confirmed Type Omeprazole 40 mg PO DAILY 07/23/20 05/26/22 History Ketorolac [Toradol] 10 mg PO Q6HR PRN #20 tab 05/24/22 05/26/22 Rx Metoclopramide [Reglan] 10 mg PO ACHS PRN #20 tab 05/24/22 05/26/22 Rx Gabapentin [Neurontin] 400 mg PO TID 05/26/22 05/26/22 History Ondansetron Odt [Zofran ODT] 4 mg SL Q8HR PRN 05/26/22 05/26/22 History Percocet (Unknown Strength) 1 tab PO Q6H PRN 05/26/22 05/26/22 History Phentermine HCl [Adipex-P] 37.5 mg PO DAILY 05/26/22 05/26/22 History buPROPion XL [Wellbutrin XL] 150 mg PO DAILY 05/26/22 05/26/22 History Allergies Allergy/AdvReac Type Severity Reaction Status Date / Time latex Allergy Unknown SWELLING, Verified 05/26/22 22:18 RASH, ITCHING adhesive tape AdvReac Mild Rash/Hives Verified 05/26/22 22:18 Physical Exam Vitals: Vital Signs Temp Pulse Pulse Resp BP BP Pulse Ox 05/27/22 08:00 97 05/27/22 07:00 79.5 F L 72 18 126/85 98 05/27/22 02:07 97.8 F 87 17 129/88 98 05/27/22 01:03 83 18 123/68 98 05/26/22 21:22 97.1 F L 113 H 46 H 138/80 100 Intake and Output 05/26/22 05/27/22 05/27/22 22:59 06:59 14:59 Other: # Voids 1 Weight 90.718 kg 90.718 kg Results CBC & Chem 7: 05/26/22 21:31 05/26/22 21:31 Labs: Abnormal Lab Results - Last 24 Hours (Table) 05/26/22 05/26/22 05/26/22 Range/Units 21:31 21:31 21:31 WBC 12.0 H (3.8-10.6) k/uL Lymphocytes # 5.7 H (1.0-4.8) k/uL D-Dimer 0.76 H (<0.60) mg/L FEU Chloride 108 H (98-107) mmol/L Carbon Dioxide 18 L (22-30) mmol/L Glucose 100 H (74-99) mg/dL Plasma Lactic Acid Gustabo (0.7-2.0) mmol/L AST 67 H (14-36) U/L ALT 38 H (4-34) U/L 05/26/22 Range/Units 21:54 WBC (3.8-10.6) k/uL Lymphocytes # (1.0-4.8) k/uL D-Dimer (<0.60) mg/L FEU Chloride (98-107) mmol/L Carbon Dioxide (22-30) mmol/L Glucose (74-99) mg/dL Plasma Lactic Acid Gustabo 2.8 H* (0.7-2.0) mmol/L AST (14-36) U/L ALT (4-34) U/L Thrombosis Risk Factor Assmnt - Choose All That Apply Each Factor Represents 1 point: Age 41-60 years, Obesity (BMI >25) Thrombosis Risk Factor Assessment Total Risk Factor Score: 2 Thrombosis Risk Factor Assessment Level: Low Risk
--- NOTE | 2022-05-27 13:58 | P.DS ---
Providers Date of admission: 05/27/22 00:52 Expected date of discharge: 05/27/22 Attending physician: Chris Park Consults: 05/27/22 02:14 Consult Physician Stat Consulting Provider: [facility] Consult Reason/Comments: chest pain Do you want consulting provider notified?: Yes Primary care physician: Tristan Bergman [facility] Course: Chief Complaint: Sharp chest pain This is a pleasant 46-year-old patient, follows with Dr. Tristan Bergman. Chronic stable medical conditions include fibromyalgia, GERD, arthritis, irritable bowel syndrome, Crohn's disease, gastritis. In the past patient has followed up with Dr. Abimael Epstein from GI and wants to change her gastroneurologist. Patient was in the bath tub yesterday and she felt a walker was about a heart. Started feeling a sharp pain in the midsternal area. Like a pressure ulcer. Did come to the right arm. Some shortness of breath dizziness lightheadedness. Last her for about 2 hours. She felt the bath tub water was rather hard. Was in there for about 20 minutes. No prior cardiac history. This is significant GERD symptoms. Is a smoker. She has no fixed bowel pattern because of her Crohn's. Does not follow anybody specifically. Recently she was on the constipated had to be given a laxative. As a loss to 3 days she's having anemia around 5 bowel movements a day. Patient is accompanied by her in the room. Patient seen by Dr. Liao from cardiology. Pain is felt to be from costochondritis. He'll see the patient outpatient for a possible stress test. Patient told to follow-up with Dr. Bergman and get appointment with the GI with a view to both EGD and colonoscopy as soon as possible. Advised against smoking. Counseled. Discussed with patient . Past medical history to include: Fibromyalgia, GERD, irritable bowel syndrome, Crohn's disease, gastritis, depression Social history: . Doesn't marijuana joint every day. Smoking a pack a day for last 35 years. Family history: Reviewed, noncontributory to presentation Physical examination: VITAL SIGNS: 97.5, 72, 18, 126/85, 98% room air GENERAL: BMI 29.5, laying in bed awake, comfortable multiple tattoos. EYES: Pupils equal. Conjunctiva normal. HEENT: External appearance of nose and ears normal, oral cavity grossly normal. NECK: JVD not raised; masses not palpable. HEART: First and second heart sounds are normal; no edema. LUNGS: Respiratory rate normal; clear to auscultation. ABDOMEN: Soft, nontender, liver spleen not palpable, no masses palpable. PSYCH: Alert and oriented x3; mood and affect normal. MUSCULOSKELETAL:No Clubbing/cyanosis;muscles-grossly intact. Significant reproducible tenderness on the lower sternum, costochondral junction NEUROLOGICAL: Cranial nerves grossly intact; no facial asymmetry, power and sensation grossly intact. LYMPHATICS: No lymph nodes palpable in the axilla and neck INVESTIGATIONS, reviewed in the clinical context: White count 12 hemoglobin 15.3 platelets 200 sodium 142 potassium 3.8 creatinine 0.9 Lactic acid 2.8 AST 67 ALT 38 Troponin I less than 0.0122 EKG tracing personally reviewed by me-normal sinus rhythm. Rate 86 Chest x-ray film personally reviewed by me-no infiltrates CT chest angiogram for PE: Negative Assessment and plan: -Anterior chest wall pain of sudden onset sharp reproducible.. Possible acute costochondritis. Some other associated symptoms may be suggested of a cardiac cause. Patient's cardiac risk factors include smoking Seen by cardiology. For outpatient stress test. -Chronic fibromyalgia Neurontin, Percocet -Depression Wellbutrin -Irritable bowel syndrome -Chronic Crohn's disease Follow-up with a physiotherapy practice manager -Suspect underlying esophagitis/gastritis. Patient to have an EGD. We'll follow-up with her PCP to arrange the same. -Chronic nicotine dependence, cigarette smoker Nicotine patch 21 -Recreational marijuana use Disposition: Home Plan - Discharge Summary Discharge Rx Participant: No New Discharge Prescriptions: Continue Omeprazole 40 mg PO DAILY Ondansetron Odt [Zofran ODT] 4 mg SL Q8HR PRN PRN Reason: Nausea And Vomiting buPROPion XL [Wellbutrin XL] 150 mg PO DAILY Phentermine HCl [Adipex-P] 37.5 mg PO DAILY Metoclopramide [Reglan] 10 mg PO ACHS PRN #20 tab PRN Reason: Nausea And Vomiting Ketorolac [Toradol] 10 mg PO Q6HR PRN #20 tab PRN Reason: Pain Gabapentin [Neurontin] 400 mg PO TID Percocet (Unknown Strength) 1 tab PO Q6H PRN PRN Reason: Pain Discharge Medication List Omeprazole 40 mg PO DAILY 07/23/20 [History] Ketorolac [Toradol] 10 mg PO Q6HR PRN #20 tab 05/24/22 [Rx] Metoclopramide [Reglan] 10 mg PO ACHS PRN #20 tab 05/24/22 [Rx] Gabapentin [Neurontin] 400 mg PO TID 05/26/22 [History] Ondansetron Odt [Zofran ODT] 4 mg SL Q8HR PRN 05/26/22 [History] Percocet (Unknown Strength) 1 tab PO Q6H PRN 05/26/22 [History] Phentermine HCl [Adipex-P] 37.5 mg PO DAILY 05/26/22 [History] buPROPion XL [Wellbutrin XL] 150 mg PO DAILY 05/26/22 [History] Follow up Appointment(s)/Referral(s): Sachin Josue MD [STAFF PHYSICIAN] - 1 Week Tristan Bergman MD [Primary Care Provider] - 1-2 days Patient Instructions/Handouts: Chest Pain (GEN) Discharge Disposition: HOME SELF-CARE
--- NOTE | 2022-05-28 14:58 | CA ---
Transthoracic Echo Report Name: Angeles Ricardo Age: 46 Gender: F : 1975 Exam Date: 05/27/2022 10:35 Exam Location: [facility] Ht (in): 69 Wt (lb): 200 Ordering Physician: Tatiana Rodgers DO Attending/Referring Phys: [id number], Vishal Motor Transport Inspector Josette Scott, VIKY Procedure CPT: Indications: Chest Pain Cardiac Hx: Technical Quality: Fair Contrast 1: Total Dose (mL): Contrast 2: Total Dose (mL): MEASUREMENTS (Male / Female) Normal Values 2D ECHO LV Diastolic Diameter PLAX 5.3 cm 4.2 - 5.9 / 3.9 - 5.3 cm LV Systolic Diameter PLAX 3.3 cm IVS Diastolic Thickness 0.9 cm 0.6 - 1.0 / 0.6 - 0.9 cm LVPW Diastolic Thickness 1.1 cm 0.6 - 1.0 / 0.6 - 0.9 cm LV Relative Wall Thickness 0.4 RV Internal Dim ED PLAX 3.2 cm LA Volume 76.1 cm??? 18 - 58 / 22 - 52 cm??? M-MODE Aortic Root Diameter MM 2.6 cm LA Systolic Diameter MM 3.6 cm LA Ao Ratio MM 1.4 AV Cusp Separation MM 2.0 cm DOPPLER AV Peak Velocity 149.7 cm/s AV Peak Gradient 9.0 mmHg AV Mean Velocity 107.9 cm/s AV Mean Gradient 5.1 mmHg AV Velocity Time Integral 38.2 cm LVOT Peak Velocity 117.2 cm/s LVOT Peak Gradient 5.5 mmHg LVOT Velocity Time Integral 25.8 cm MV Area PHT 3.7 cm??? Mitral E Point Velocity 103.6 cm/s Mitral A Point Velocity 75.2 cm/s Mitral E to A Ratio 1.4 MV Deceleration Time 203.3 ms TR Peak Velocity 207.0 cm/s TR Peak Gradient 17.1 mmHg Right Ventricular Systolic Press 22.1 mmHg FINDINGS Left Ventricle Normal Left ventricular size, wall thickness, systolic function with no obvious regional wall motion abnormalities. Normal Left ventricular diastolic filling pattern. Left ventricular ejection fraction is estimated at 55-60 %. Right Ventricle Normal right ventricular size and function. Right ventricular systolic pressure within normal limits. Right Atrium Normal right atrial size. Left Atrium Mild left atrial dilatation. . Mildly increased left atrial area. Mitral Valve Structurally normal mitral valve. Mild mitral annular calcification. Mild mitral regurgitation. Aortic Valve No aortic valve stenosis or regurgitation. Tricuspid Valve Structurally normal tricuspid valve. Mild tricuspid regurgitation. Pulmonic Valve Trace pulmonic regurgitation. Pericardium No pericardial effusion. Aorta Normal size aortic root and proximal ascending aorta. CONCLUSIONS Normal left ventricular dimension and systolic function Overall normal intracardiac valves Previewed by: Dr. Sachin Josue MD (Electronically Signed) Final Date: 28 May 2022 14:57
== END 2022-05-27 12:36 | disposition home or self-care (01) ==
LOC: EC 21:19 → SUPCPDRO 21:19 → 6NMEDSUR 05-27 00:52
PROVIDERS: ADMIT Hospitalist; ATTEND Hospitalist
DX: R07.89 Other chest pain (principal); K21.9 Gastro-esophageal reflux disease without esophagitis; M19.90 Unspecified osteoarthritis, unspecified site; M79.7 Fibromyalgia; K50.90 Crohn's disease, unspecified, without complications; F32.A Depression, unspecified; F12.90 Cannabis use, unspecified, uncomplicated; F17.210 Nicotine dependence, cigarettes, uncomplicated; Z79.899 Other long term (current) drug therapy; Z91.040 Latex allergy status
CPT/HCPCS: 96374; 96375; 99285; 36415; 94760; 93005; 93306; 85379; 83880; 80053; 83605 ×2; 83690; 83735; 84484 ×2; 85025; 85610; 85730; 71046; 71275; G0378; J2060; J1170; C9113

== ENCOUNTER 2024-05-21 14:47 | Emergency (ER) | payer BC ==
[2024-05-21 15:41] LABS: Basophils # (A) 0.1 k/uL (0-0.2); Basophils % (A) 1 %; Eosinophils # (A) 0.2 k/uL (0-0.7); Eosinophils % (A) 2 %; HCT 41.6 % (34.0-46.0); HGB 14.2 gm/dL (11.4-16.0); Lymphocytes # (A) 2.7 k/uL (1.0-4.8); Lymphocytes % (A) 21 %; MCH 31.8 pg (25.0-35.0); MCHC 34.1 g/dL (31.0-37.0); MCV 93.2 fL (80.0-100.0); Monocytes # (A) 0.5 k/uL (0-1.0); Monocytes % (A) 4 %; Neutrophils # (A) 8.9 k/uL (1.3-7.7); Neutrophils % (A) 71 %; Platelet Count 210 k/uL (150-450); RBC 4.46 m/uL (3.80-5.40); RDW 12.3 % (11.5-15.5); WBC 12.5 k/uL (3.8-10.6)
[2024-05-21] MEDS: MAG HYDROX/AL HYDROX/SIMETH 30 ML, HYOSCYAMINE ELIXIR 10 ML, LIDOCAINE VISCOUS 2% 10 ML PO STA (15:50)
[2024-05-21] MEDS: HYDROmorphone 1 MG/ML 1 ML SYRINGE IVP STA (15:52)
--- NOTE | 2024-05-21 15:55 | ED ---
General Adult HPI - General Chief complaint: Abdominal Pain Stated complaint: abd pain Time Seen by Provider: 05/21/24 15:04 Source: patient, EMS Mode of arrival: EMS Limitations: no limitations - History of Present Illness Initial comments: Dictation was produced using [employer] dictation software. please excuse any grammatical, word or spelling errors. Chief Complaint: 48-year-old female with chest and epigastric abdominal pain History of Present Illness: Patient is a 48-year-old female presents emergency department with sudden onset chest and epigastric pain. Patient states she had a negative stress test 6 years ago in [facility]. States that the pain is substernal, epigastric radiates down her extremity. States that she gets symptoms like this due to flareups of her Crohn's disease. She reports extensive abdominal history including hiatal hernia and gastritis. Patient does complain of associated nausea and diaphoresis. Patient was brought in by EMS. The ROS documented in this emergency department record has been reviewed and confirmed by me. Those systems with pertinent positive or negative responses have been documented in the HPI. All other systems are other negative and/or noncontributory. - Related Data Home Medications Medication Instructions Recorded Confirmed Vonoprazan Fumarate [Voquezna] 10 mg PO DAILY 05/21/24 05/21/24 Allergies Allergy/AdvReac Type Severity Reaction Status Date / Time latex Allergy Unknown SWELLING, Verified 05/21/24 15:33 RASH, ITCHING adhesive tape AdvReac Mild Rash/Hives Verified 05/21/24 15:33 Review of Systems ROS Statement: Those systems with pertinent positive or pertinent negative responses have been documented in the HPI. ROS Other: All systems not noted in ROS Statement are negative. Past Medical History Past Medical History: Fibromyalgia, GERD/Reflux, Osteoarthritis (OA) Additional Past Medical History / Comment(s): Hepatitis A (19 yrs old). IBS & Crohns & gastritis, hernia History of Any Multi-Drug Resistant Organisms: None Reported Past Surgical History: Hysterectomy, Tonsillectomy Additional Past Surgical History / Comment(s): Exploratory EGD's and Colon[facility] copies, sinus, Past Anesthesia/Blood Transfusion Reactions: No Reported Reaction Past Psychological History: Depression Smoking Status: Current every day smoker Past Alcohol Use History: Occasional Past Drug Use History: Marijuana - Past Family History Mother Family Medical History: No Reported History General Exam - General Exam Comments Initial Comments: PHYSICAL EXAM: General Impression: Alert and oriented x3, not in acute distress HEENT: Normocephalic atraumatic, extra-ocular movements intact, pupils equal and reactive to light bilaterally, mucous membranes moist. Cardiovascular: Heart regular rate and rhythm Chest: Able to complete full sentences, no retractions, no tachypnea Abdomen: abdomen soft, tenderness to the epigastrium, non-distended, no organomegaly Musculoskeletal: Pulses present and equal in all extremities, no peripheral edema Motor: no focal deficits noted Neurological: CN II-XII grossly intact, no focal motor or sensory deficits noted Skin: Intact with no visualized rashes Psych: Anxious Limitations: no limitations Course Vital Signs 05/21/24 05/21/24 05/21/24 15:05 15:23 18:00 Temperature 98.1 F 97.8 F Pulse Rate 102 H 85 62 Respiratory 45 H 32 H 16 Rate Blood Pressure 143/116 129/63 128/86 O2 Sat by Pulse 98 98 99 Oximetry EKG Findings - EKG Comments: EKG Findings:: My EKG interpretation: Ventricular rate 93, sinus rhythm,. 166, cures 94, QTc 391. No [place] prolongation, no QTC prolongation, no ST or T-wave changes noted. Overall, this EKG is unremarkable Medical Decision Making - Medical Decision Making Was pt. sent in by a medical professional or institution (SHERRI Croft, CUSTOMER FIELD REPRESENTATIVE, urgent care, hospital, or [place] health care facility...) When possible be specific @ -No Did you speak to anyone other than the patient for history (EMS, parent, family, police, friend...)? What history was obtained from this source @ -No Did you review nursing and triage notes (agree or disagree)? Why? @ -I reviewed and agree with nursing and triage notes Were old charts reviewed (outside hosp., previous admission, EMS record, old EKG, old radiological studies, urgent care reports/EKG's, [place] health care facility records)? Report findings @ -No old charts were reviewed Differential Diagnosis (chest pain, altered mental status, abdominal pain women, abdominal pain men, vaginal bleeding, musculoskeletal, weakness, fever, dyspnea, syncope, headache, dizziness, GI bleed, back pain, seizure, CVA, palpatations, mental health)? @ -Differential Chest Pain: Stable Angina, Unstable Angina, STEMI, NSTEMI Aortic Dissection, Pneumothorax, Musculoskeletal, Esophageal Spasm GERD, Cholecystitis, Pancreatitis, Zoster, this is not meant to be an all-inclusive list. EKG interpreted by me (3pts min.). @ -As above X-rays interpreted by me (1pt min.). @ -Chest x-ray shows no acute process. CT interpreted by me (1pt min.). @ -CT abdomen pelvis shows cholelithiasis. Incidental finding of left ovarian cyst U/S interpreted by me (1pt. min.). @ -None done What testing was considered but not performed or refused? (CT, X-rays, U/S, labs)? Why? @ -None What meds were considered but not given or refused? Why? @ -None Was smoking cessation discussed for >3mins.? @ -No Were there social determinants of health that impacted care today? How? (Homelessness, low income, unemployed, alcoholism, drug addiction, transportatio n, low edu. Level, literacy, decrease access to med. care, m[facility], rehab)? @ -No Was there de-escalation of care discussed even if they declined (Discuss DNR or withdrawal of care, Hospice)? DNR status @ -No What co-morbidities impacted this encounter? (DM, HTN, Smoking, COPD, CAD, Cancer, CVA, ARF, Chemo, Hep., AIDS, mental health diagnosis, sleep apnea, morbid obesity)? @ -crohns disease, hiatal hernia and abdominal hernia Was patient admitted / discharged? Hospital course, mention meds given and route, prescriptions, significant lab abnormalities, going to OR and other pertinent info. @ -Patient is a 48-year-old female presents to the emergency department with chest pain. She also has associated abdominal symptoms. She does report radiation to the shoulder. Denies any history of coronary artery disease. She has no cardiac comorbidities otherwise. Laboratory evaluation obtained. Acceptable limits. Show troponins are negative. CT showed cholelithiasis. Patient given analgesics GI cocktail with resolution of her symptoms. Recommended observation admission for cardiac monitoring cardiology consultation. Patient refused. States that this feels more abdominal more than anything. Clinically patient's symptoms and workup more consistent with gallstone pain. Patient discharged advised follow-up with general surgery and primary care doctor. Did you discuss the management of the patient with other professionals (professionals i.e. , PA, CUSTOMER FIELD REPRESENTATIVE, lab, RT, psych nurse, group social worker, machine fur cleaner, teacher, giving officer, case briefer)? Give summary @ -No Was critical care preformed (if so, how long)? @ -No Undiagnosed new problem with uncertain prognosis? @ -No Drug Therapy requiring intensive monitoring for toxicity (Heparin, Nitro, Insulin, Cardizem)? @ -No Were any procedures done? @ -No Diagnosis/symptom? Acute, or Chronic, or Acute on Chronic? Uncomplicated (without systemic symptoms) or Complicated (systemic symptoms)? @ -Symptomatic cholelithiasis Side effects of treatment? @ -No Exacerbation, Progression, or Severe Exacerbation? @ -No Poses a threat to life or bodily function? How? (Chest pain, USA, OR, pneumonia, PE, COPD, DKA, ARF, appy, cholecystitis, CVA, Diverticulitis, Homicidal, Suicidal, threat to staff... and all critical care pts) @ -yes - Lab Data Result diagrams: 05/21/24 15:30 05/21/24 15:30 Lab Results 05/21/24 05/21/24 05/21/24 Range/Units 15:30 15:30 15:30 WBC 12.5 H (3.8-10.6) k/uL RBC 4.46 (3.80-5.40) m/uL Hgb 14.2 (11.4-16.0) gm/dL Hct 41.6 (34.0-46.0) % MCV 93.2 (80.0-100.0) fL MCH 31.8 (25.0-35.0) pg MCHC 34.1 (31.0-37.0) g/dL RDW 12.3 (11.5-15.5) % Plt Count 210 (150-450) k/uL MPV 9.0 Neutrophils % 71 % Lymphocytes % 21 % Monocytes % 4 % Eosinophils % 2 % Basophils % 1 % Neutrophils # 8.9 H (1.3-7.7) k/uL Lymphocytes # 2.7 (1.0-4.8) k/uL Monocytes # 0.5 (0-1.0) k/uL Eosinophils # 0.2 (0-0.7) k/uL Basophils # 0.1 (0-0.2) k/uL PT 10.8 (10.0-12.5) sec INR 1.0 (<1.2) APTT 23.1 (22.0-30.0) sec Sodium 137 (137-145) mmol/L Potassium 4.8 (3.5-5.1) mmol/L Chloride 110 H (98-107) mmol/L Carbon Dioxide 17 L (22-30) mmol/L Anion Gap 10 mmol/L BUN 16 (7-17) mg/dL Creatinine 0.76 (0.52-1.04) mg/dL Est GFR (CKD-EPI)AfAm >90 (>60 ml/min/1.73 sqM) Est GFR (CKD-EPI)NonAf >90 (>60 ml/min/1.73 sqM) Glucose 107 H (74-99) mg/dL Lactic Ac Sepsis Rflx Plasma Lactic Acid Gustabo (0.7-2.0) mmol/L Calcium 9.6 (8.4-10.2) mg/dL Magnesium 1.6 (1.6-2.3) mg/dL Total Bilirubin 1.4 H (0.2-1.3) mg/dL AST 109 H (14-36) U/L ALT 59 H (4-34) U/L Alkaline Phosphatase 52 (38-126) U/L Troponin I (0.000-0.034) ng/mL Total Protein 8.0 (6.3-8.2) g/dL Albumin 4.5 (3.5-5.0) g/dL Lipase 71 (23-300) U/L 05/21/24 05/21/24 05/21/24 Range/Units 15:30 15:30 16:55 WBC (3.8-10.6) k/uL RBC (3.80-5.40) m/uL Hgb (11.4-16.0) gm/dL Hct (34.0-46.0) % MCV (80.0-100.0) fL MCH (25.0-35.0) pg MCHC (31.0-37.0) g/dL RDW (11.5-15.5) % Plt Count (150-450) k/uL MPV Neutrophils % % Lymphocytes % % Monocytes % % Eosinophils % % Basophils % % Neutrophils # (1.3-7.7) k/uL Lymphocytes # (1.0-4.8) k/uL Monocytes # (0-1.0) k/uL Eosinophils # (0-0.7) k/uL Basophils # (0-0.2) k/uL PT (10.0-12.5) sec INR (<1.2) APTT (22.0-30.0) sec Sodium (137-145) mmol/L Potassium (3.5-5.1) mmol/L Chloride (98-107) mmol/L Carbon Dioxide (22-30) mmol/L Anion Gap mmol/L BUN (7-17) mg/dL Creatinine (0.52-1.04) mg/dL Est GFR (CKD-EPI)AfAm (>60 ml/min/1.73 sqM) Est GFR (CKD-EPI)NonAf (>60 ml/min/1.73 sqM) Glucose (74-99) mg/dL Lactic Ac Sepsis Rflx Y Plasma Lactic Acid Gustabo 2.5 H* (0.7-2.0) mmol/L Calcium (8.4-10.2) mg/dL Magnesium (1.6-2.3) mg/dL Total Bilirubin (0.2-1.3) mg/dL AST (14-36) U/L ALT (4-34) U/L Alkaline Phosphatase (38-126) U/L Troponin I <0.012 (0.000-0.034) ng/mL Total Protein (6.3-8.2) g/dL Albumin (3.5-5.0) g/dL Lipase (23-300) U/L 05/21/24 Range/Units 18:30 WBC (3.8-10.6) k/uL RBC (3.80-5.40) m/uL Hgb (11.4-16.0) gm/dL Hct (34.0-46.0) % MCV (80.0-100.0) fL MCH (25.0-35.0) pg MCHC (31.0-37.0) g/dL RDW (11.5-15.5) % Plt Count (150-450) k/uL MPV Neutrophils % % Lymphocytes % % Monocytes % % Eosinophils % % Basophils % % Neutrophils # (1.3-7.7) k/uL Lymphocytes # (1.0-4.8) k/uL Monocytes # (0-1.0) k/uL Eosinophils # (0-0.7) k/uL Basophils # (0-0.2) k/uL PT (10.0-12.5) sec INR (<1.2) APTT (22.0-30.0) sec Sodium (137-145) mmol/L Potassium (3.5-5.1) mmol/L Chloride (98-107) mmol/L Carbon Dioxide (22-30) mmol/L Anion Gap mmol/L BUN (7-17) mg/dL Creatinine (0.52-1.04) mg/dL Est GFR (CKD-EPI)AfAm (>60 ml/min/1.73 sqM) Est GFR (CKD-EPI)NonAf (>60 ml/min/1.73 sqM) Glucose (74-99) mg/dL Lactic Ac Sepsis Rflx Plasma Lactic Acid Gustabo (0.7-2.0) mmol/L Calcium (8.4-10.2) mg/dL Magnesium (1.6-2.3) mg/dL Total Bilirubin (0.2-1.3) mg/dL AST (14-36) U/L ALT (4-34) U/L Alkaline Phosphatase (38-126) U/L Troponin I <0.012 (0.000-0.034) ng/mL Total Protein (6.3-8.2) g/dL Albumin (3.5-5.0) g/dL Lipase (23-300) U/L Disposition Clinical Impression: Cholelithiasis Disposition: HOME SELF-CARE Condition: Good Instructions (If sedation given, give patient instructions): Gallstones (ED) Is patient prescribed a controlled substance at d/c from ED?: No Referrals: Tristan Bergman MD [Primary Care Provider] - 1-2 days Alec Washington DO [Doctor of Osteopathic Medicine] - 1-2 days Time of Disposition: 19:25
[2024-05-21 16:05] LABS: African American GFR (CKD) >90 (>60 ml/min/1.73 sqM); Albumin 4.5 g/dL (3.5-5.0); Anion Gap 10 mmol/L; Blood Urea Nitrogen 16 mg/dL (7-17); Calcium 9.6 mg/dL (8.4-10.2); Carbon Dioxide 17 mmol/L (22-30); Lipase 71 U/L (23-300); Non-African American GFR(CKD) >90 (>60 ml/min/1.73 sqM); Sodium 137 mmol/L (137-145)
[2024-05-21 16:07] LABS: ALT 59 U/L (4-34); AST 109 U/L (14-36); Alkaline Phosphatase 52 U/L (38-126); Chloride 110 mmol/L (98-107); Glucose 107 mg/dL (74-99); Magnesium 1.6 mg/dL (1.6-2.3); Potassium 4.8 mmol/L (3.5-5.1); Total Bilirubin 1.4 mg/dL (0.2-1.3)
--- NOTE | 2024-05-21 16:19 | XR ---
EXAMINATION TYPE: XR chest 2V DATE OF EXAM: 05/21/2024 4:13 PM COMPARISON: None. CLINICAL INDICATION: Female, 48 years old with history of epigastric pain, TECHNIQUE: XR chest 2V view(s) obtained. FINDINGS: The heart size is normal. The pulmonary vasculature is normal. The lungs are clear. IMPRESSION: 1. No acute pulmonary process. [facility], Workstation: [facility], 05/21/2024 4:16 PM
[2024-05-21 16:20] LABS: Partial Thromboplastin Time 23.1 sec (22.0-30.0); Prothrombin Time 10.8 sec (10.0-12.5)
--- NOTE | 2024-05-21 16:40 | CT ---
EXAMINATION TYPE: CT abdomen pelvis w con DATE OF EXAM: 05/21/2024 4:27 PM COMPARISON: 05/24/2022 CLINICAL INDICATION: Female, 48 years old with history of epigastric pain, Pt presents with a sudden onset of severe abdominal pain radiates into her sternum and into the right shoulder and down the rig ht arm. TECHNIQUE: Axial images were obtained from above the diaphragm to the pubic rami in the axial plane a t 5 mm thick sections. Reconstructed images are reviewed on the computer in the coronal plane. CONTRAST: 100 ml mL of Isovue 300. Study performed without Oral Contrast DLP: 1415 mGycm, Automated exposure control for dose reduction was used. FINDINGS: Limited CT sections are obtained the lung bases. The lung bases are clear. CT ABDOMEN: Liver: Normal Spleen: Normal Pancreas: Normal Adrenal glands: The adrenal glands are normal. Gallbladder: Gallstones evident. Kidneys: No masses are evident. No hydronephrosis is present. No cysts are present. Delayed images were obtained through the kidneys, which remain unremarkable. Aorta: Normal Inferior vena cava: Normal. CT PELVIS: Loops of bowel within the abdomen and pelvis are normal. Study is without oral contrast limiting bowel evaluation. Appendix: Normal as visualized. Urinary bladder: Normal. Genitourinary structures: There is a 2.8 cm left ovarian cyst. Uterus is not identified. Right adnexa is unremarkable. Osseous structures: No suspicious lytic or sclerotic lesions. IMPRESSION: 1. Left ovarian cyst . 2. Cholelithiasis [facility], Workstation: [facility], 05/21/2024 4:38 PM
[2024-05-21 19:48] VITALS: BP 143/96; PULSE 61; RESP 18; TEMP 98.5
== END 2024-05-21 19:53 | disposition home or self-care (01) ==
LOC: EC 14:47
DX: K80.20 Calculus of gallbladder without cholecystitis without obstruction (principal); N83.202 Unspecified ovarian cyst, left side; F17.200 Nicotine dependence, unspecified, uncomplicated; Z91.040 Latex allergy status; Z91.09 Other allergy status, other than to drugs and biological substances
CPT/HCPCS: 36415; 80053; 83605; 83690; 83735; 84484; 85025; 85610; 85730; 71046; 74177; 99285; 96374; J1171; Q9967

== ENCOUNTER → 2024-06-12 | Outpatient (CLI) | payer BC ==
--- NOTE | 2024-06-13 08:34 | NM ---
EXAMINATION TYPE: NM hepatobiliary wo EF DATE OF EXAM: 06/12/2024 COMPARISON: Correlation CT 05/21/2024 CLINICAL INDICATION: Female, 48 years old with pain, history of K80.8 OTHER CHOLELITHIASIS WITHOUT OB STRUCTION; TECHNIQUE: After the intravenous administration of 5.36 mCi Tc 99m Mebrofenin hepatobiliary scintigra phy is performed. Immediate images post injection. FINDINGS: Satisfactory initial uptake of tracer by the liver. Small bowel is visualized at 6 minutes. No gallbl adder visualization up to 4 hours. IMPRESSION: No gallbladder visualization up to 4 hours. Scintigraphic findings may be seen with acute cholecystitis. [facility], , 06/13/2024 8:31 AM
== END | disposition home or self-care (01) ==
LOC: RADNMMAIN 12:54
PROVIDERS: ATTEND Surgery
DX: K80.80 Other cholelithiasis without obstruction (principal)
CPT/HCPCS: 78226; A9537

== ENCOUNTER 2024-07-08 10:44 | Observation (INO) | payer BC ==
--- NOTE | 2024-07-08 11:10 | ED ---
General Adult HPI - General Chief complaint: Chest Pain Stated complaint: Chest pain Time Seen by Provider: 07/08/24 11:00 Source: patient Mode of arrival: ambulatory - History of Present Illness Initial comments: Dictation was produced using [employer] dictation software. please excuse any grammatical, word or spelling errors. Chief Complaint: 48-year-old female sent from general surgery office for chest pain and abdominal pain History of Present Illness: Patient is a 48-year-old female she was sent in from general surgeons office. Almost 2 weeks ago patient had laparoscopic cholecystectomy performed by Dr. Washington. She had a follow-up visit today. She told Dr. John that she was having some chest and abdominal pain that started since yesterday. States that it feels like it is in her upper abdomen and her chest and radiates to her back. Patient states she has been having the symptoms chronically for a while now. She states that she felt that the gallbladder amol lawrence initially helped her symptoms. No associated diaphoresis nausea. Pain is not rating she does not have any cardiac history. Denies any family history of cardiac disease. Patient has been undergoing endoscopies with esophageal ablations with outside GI. She complains of some constitutional symptoms. States that her pain seems to be worse whenever she inspires deeply. The ROS documented in this emergency department record has been reviewed and confirmed by me. Those systems with pertinent positive or negative responses have been documented in the HPI. All other systems are other negative and/or noncontributory. - Related Data Home Medications Medication Instructions Recorded Confirmed Vonoprazan Fumarate [Voquezna] 10 mg PO DAILY 05/21/24 07/08/24 Allergies Allergy/AdvReac Type Severity Reaction Status Date / Time latex Allergy Unknown SWELLING, Verified 07/08/24 14:19 RASH, ITCHING adhesive tape AdvReac Mild Rash/Hives Verified 07/08/24 14:19 Review of Systems ROS Statement: Those systems with pertinent positive or pertinent negative responses have been documented in the HPI. ROS Other: All systems not noted in ROS Statement are negative. Past Medical History Past Medical History: Fibromyalgia, GERD/Reflux, Osteoarthritis (OA) Additional Past Medical History / Comment(s): Hepatitis A (19 yrs old). IBS & Crohns & gastritis, hernia, barretts esophagus. current right knee pain History of Any Multi-Drug Resistant Organisms: None Reported Past Surgical History: Cholecystectomy, Hysterectomy, Tonsillectomy Additional Past Surgical History / Comment(s): Exploratory EGD's and Colonoscopies, sinus surg, all teeth removed, esophageal ablation Past Anesthesia/Blood Transfusion Reactions: No Reported Reaction Past Psychological History: Depression Smoking Status: Current every day smoker, Vaper Past Alcohol Use History: None Reported Past Drug Use History: Marijuana - Past Family History Mother Family Medical History: No Reported History Father Family Medical History: Cancer, Diabetes Mellitus, Myocardial Infarction ([place]) Additional Family Medical History / Comment(s): esophageal ca General Exam - General Exam Comments Initial Comments: PHYSICAL EXAM: General Impression: Alert and oriented x3, not in acute distress HEENT: Normocephalic atraumatic, extra-ocular movements intact, pupils equal and reactive to light bilaterally, mucous membranes moist. Cardiovascular: Heart regular rate and rhythm Chest: Able to complete full sentences, no retractions, no tachypnea Abdomen: abdomen soft, palpatory abdominal tenderness to the epigastrium and right upper quadrant, non-distended, no organomegaly Musculoskeletal: Pulses present and equal in all extremities, no peripheral edema Motor: no focal deficits noted Neurological: CN II-XII grossly intact, no focal motor or sensory deficits noted Skin: Intact with no visualized rashes Psych: Normal affect and mood Course Vital Signs 07/08/24 07/08/24 07/08/24 10:49 11:24 11:32 Temperature 97.5 F L Pulse Rate 60 68 Pulse Rate [ 80 Left Radial] Respiratory 20 18 Rate Blood Pressure 160/101 161/92 O2 Sat by Pulse 100 97 Oximetry - Reevaluation(s) Reevaluation #1: 07/08/24 13:[address] Washington including patient's labs and imaging. Dr. John will come and evaluate the patient at approximately 2:10 PM. To make further recommendations. EKG Findings - EKG Comments: EKG Findings:: My EKG interpretation: Ventricular rate 67, sinus rhythm,. 177, cures 92, QTc 376. No WI prolongation, no QTC prolongation, no ST or T-wave changes noted. Overall, this EKG is unremarkable Medical Decision Making - Medical Decision Making Was pt. sent in by a medical professional or institution (, PA, [employer], urgent care, hospital, or jail...) When possible be specific @ -No Did you speak to anyone other than the patient for history (EMS, parent, family, police, friend...)? What history was obtained from this source @ -No Did you review nursing and triage notes (agree or disagree)? Why? @ -I reviewed and agree with nursing and triage notes Were old charts reviewed (outside hosp., previous admission, EMS record, old EKG, old radiological studies, urgent care reports/EKG's, jail records)? Report findings @ -No old charts were reviewed Differential Diagnosis (chest pain, altered mental status, abdominal pain women, abdominal pain men, vaginal bleeding, musculoskeletal, weakness, fever, dyspnea, syncope, headache, dizziness, GI bleed, back pain, seizure, CVA, palpatations, mental health)? @ -Differential Chest Pain: Stable Angina, Unstable Angina, STEMI, NSTEMI Aortic Dissection, Pneumothorax, Musculoskeletal, Esophageal Spasm GERD, Cholecystitis, Pancreatitis, Zoster, this is not meant to be an all-inclusive list. EKG interpreted by me (3pts min.). @ -None done X-rays interpreted by me (1pt min.). @ -Chest x-ray is nonacute CT interpreted by me (1pt min.). @ -CT of the abdomen and pelvis was obtained showing some minimal fluid in the hepatorenal recess. U/S interpreted by me (1pt. min.). @ -None done What testing was considered but not performed or refused? (CT, X-rays, U/S, labs)? Why? @ -None What meds were considered but not given or refused? Why? @ -None Was smoking cessation discussed for >3mins.? @ -No Were there social determinants of health that impacted care today? How? (Homelessness, low income, unemployed, alcoholism, drug addiction, transporta tion, low edu. Level, literacy, decrease access to med. care, skilled nursing, rehab)? @ -No Was there de-escalation of care discussed even if they declined (Discuss DNR or withdrawal of care, Hospice)? DNR status @ -No What co-morbidities impacted this encounter? (DM, HTN, Smoking, COPD, CAD, Cancer, CVA, ARF, Chemo, Hep., AIDS, mental health diagnosis, sleep apnea, morbid obesity)? @ -esophageal ablations Was patient admitted / discharged? Hospital course, mention meds given and route, prescriptions, significant lab abnormalities, going to OR and other pertinent info. @ -48-year-old female presents to the emergency department atypical chest pain. She states that she has chronic symptoms of this. No associated symptoms of ACS. Patient has low heart score. EKG is unremarkable. Laboratory evaluation obtained. Labs imaging negative. Troponin is negative. Chest x-ray and CT abdomen pelvis was obtained. Chest x- ray nonacute. CT abdomen pelvis shows questionable fluid collection raising the suspicion of possible biliary leak. Patient symptoms atypical for ACS. Especially since she has been dealing with the symptoms for quite some time. Laboratory evaluation is unremarkable. Dr. Drummond will come and evaluate the patient make further recommendations. Patient will have a second troponin. Patient seen and evaluated by Dr. Washington who would like patient admitted to observation under his service. Patient given GI cocktail. Did you discuss the management of the patient with other professionals (professionals i.e. , PA, S[employer], lab, RT, psych nurse, social service assistant, sales manager prearranged funerals, teacher, legal compliance officer, caser shoe parts)? Give summary @ -See above Was critical care preformed (if so, how long)? @ -No Undiagnosed new problem with uncertain prognosis? @ -No Drug Therapy requiring intensive monitoring for toxicity (Heparin, Nitro, Insulin, Cardizem)? @ -No Were any procedures done? @ -No Diagnosis/symptom? Acute, or Chronic, or Acute on Chronic? Uncomplicated (without systemic symptoms) or Complicated (systemic symptoms)? @ -Chest pain, no high risk features. Side effects of treatment? @ -No Exacerbation, Progression, or Severe Exacerbation? @ -No Poses a threat to life or bodily function? How? (Chest pain, [place], [place], pneumonia, PE, COPD, DKA, ARF, appy, cholecystitis, CVA, Diverticulitis, Homicidal, Suicidal, threat to staff... and all critical care pts) @ -No - Lab Data Result diagrams: 07/08/24 11:30 07/08/24 11:30 Lab Results 07/08/24 07/08/24 07/08/24 Range/Units 11:30 11:30 11:30 WBC 11.0 H (3.8-10.6) k/uL RBC 4.88 (3.80-5.40) m/uL Hgb 15.7 (11.4-16.0) gm/dL Hct 45.5 (34.0-46.0) % MCV 93.2 (80.0-100.0) fL MCH 32.3 (25.0-35.0) pg MCHC 34.6 (31.0-37.0) g/dL RDW 12.0 (11.5-15.5) % Plt Count 274 (150-450) k/uL MPV 8.2 Neutrophils % 60 % Lymphocytes % 30 % Monocytes % 5 % Eosinophils % 4 % Basophils % 1 % Neutrophils # 6.6 (1.3-7.7) k/uL Lymphocytes # 3.3 (1.0-4.8) k/uL Monocytes # 0.5 (0-1.0) k/uL Eosinophils # 0.4 (0-0.7) k/uL Basophils # 0.1 (0-0.2) k/uL Sodium 139 (137-145) mmol/L Potassium 4.3 (3.5-5.1) mmol/L Chloride 105 (98-107) mmol/L Carbon Dioxide 23 (22-30) mmol/L Anion Gap 11 mmol/L BUN 17 (7-17) mg/dL Creatinine 0.74 (0.52-1.04) mg/dL Est GFR (CKD-EPI)AfAm >90 (>60 ml/min/1.73 sqM) Est GFR (CKD-EPI)NonAf >90 (>60 ml/min/1.73 sqM) Glucose 109 H (74-99) mg/dL Calcium 9.8 (8.4-10.2) mg/dL Total Bilirubin 0.9 (0.2-1.3) mg/dL AST 31 (14-36) U/L ALT 48 H (4-34) U/L Alkaline Phosphatase 61 (38-126) U/L Troponin I <0.012 (0.000-0.034) ng/mL Total Protein 7.9 (6.3-8.2) g/dL Albumin 4.4 (3.5-5.0) g/dL Lipase 96 (23-300) U/L Disposition Clinical Impression: Chest pain Disposition: ADMITTED IP TO THIS HOSP Condition: Fair Referrals: Tristan Bergman MD [Primary Care Provider] - 1-2 days Decision Time: 15:08
[2024-07-08] MEDS: SODIUM CHLORIDE 0.9% 1,000 ML IV STA (11:36)
[2024-07-08] MEDS: ONDANSETRON 4 MG/2 ML VIAL IVP STA (11:36)
[2024-07-08] MEDS: MORPHINE SULFATE 4 MG/ML SYRINGE IV STA (11:37)
[2024-07-08 12:06] LABS: Basophils # (A) 0.1 k/uL (0-0.2); Basophils % (A) 1 %; Eosinophils # (A) 0.4 k/uL (0-0.7); Eosinophils % (A) 4 %; HCT 45.5 % (34.0-46.0); HGB 15.7 gm/dL (11.4-16.0); Lymphocytes # (A) 3.3 k/uL (1.0-4.8); Lymphocytes % (A) 30 %; MCH 32.3 pg (25.0-35.0); MCHC 34.6 g/dL (31.0-37.0); MCV 93.2 fL (80.0-100.0); Mean Platelet Volume 8.2; Monocytes # (A) 0.5 k/uL (0-1.0); Monocytes % (A) 5 %; Neutrophils # (A) 6.6 k/uL (1.3-7.7); Neutrophils % (A) 60 %; Platelet Count 274 k/uL (150-450); RBC 4.88 m/uL (3.80-5.40)
--- NOTE | 2024-07-08 12:09 | XR ---
EXAMINATION TYPE: XR chest 2V DATE OF EXAM: 07/08/2024 11:56 AM COMPARISON: Chest x-ray May 21, 2024 CLINICAL INDICATION: Female, 48 years old with history of chest pain, TECHNIQUE: Frontal and lateral views of the chest are obtained. FINDINGS: There is no focal air space opacity, pleural effusion, or pneumothorax seen. The cardiac silhouette size is stable and within normal limits. The osseous structures are intact. IMPRESSION: No acute process. No significant change from prior. [facility], , 07/08/2024 12:06 PM
[2024-07-08 12:36] LABS: ALT 48 U/L (4-34); African American GFR (CKD) >90 (>60 ml/min/1.73 sqM); Anion Gap 11 mmol/L; Blood Urea Nitrogen 17 mg/dL (7-17); Calcium 9.8 mg/dL (8.4-10.2); Carbon Dioxide 23 mmol/L (22-30); Chloride 105 mmol/L (98-107); Glucose 109 mg/dL (74-99); Lipase 96 U/L (23-300); Non-African American GFR(CKD) >90 (>60 ml/min/1.73 sqM); Sodium 139 mmol/L (137-145); Total Bilirubin 0.9 mg/dL (0.2-1.3)
[2024-07-08 12:51] LABS: AST 31 U/L (14-36); Potassium 4.3 mmol/L (3.5-5.1); Total Protein 7.9 g/dL (6.3-8.2)
[2024-07-08 12:52] LABS: Albumin 4.4 g/dL (3.5-5.0); Alkaline Phosphatase 61 U/L (38-126)
--- NOTE | 2024-07-08 13:30 | CT ---
EXAMINATION TYPE: CT abdomen pelvis w con DATE OF EXAM: 07/08/2024 1:14 PM COMPARISON: None. CLINICAL INDICATION: Female, 48 years old with history of request per Dr. Washington, post op gall bladde r/epigastric pain TECHNIQUE: Axial images were obtained from above the diaphragm to the pubic rami in the axial plane a t 5 mm thick sections. Reconstructed images are reviewed on the computer in the coronal plane. CONTRAST: 100ml mL of Isovue 300. Study performed without Oral Contrast DLP: 1330.4 mGycm, Automated exposure control for dose reduction was used. FINDINGS: Limited CT sections are obtained the lung bases. The lung bases are clear. CT ABDOMEN: Liver: Normal Spleen: Normal Pancreas: Normal Adrenal glands: The adrenal glands are normal. Gallbladder: There is a small low density collection in the gallbladder bed fossa. Seroma and hematom a could be considered. Bile leak should be considered. Consider nuclear medicine hepatobiliary study to evaluate for leak. This area measures 2.0 x 1.2 cm. Kidneys: No masses are evident. No hydronephrosis is present. No cysts are present. Delayed images were obtained through the kidneys, which remain unremarkable. Aorta: Normal Inferior vena cava: Normal. CT PELVIS: Loops of bowel within the abdomen and pelvis are normal. There are loops of bowel which are incom pletely distended or lack oral contrast limiting their evaluation. Appendix: Normal as visualized. Urinary bladder: Normal. No free fluid is within the pelvis. Genitourinary structures: Left ovarian cyst currently measures 1.5 cm, diminished in comparison. Uter us is not identified. Right adnexa appears normal. Osseous structures: No suspicious lytic or sclerotic lesions. IMPRESSION: 1. Biliary leak at the cholecystectomy site is not excluded with a small localized fluid collection. Nuclear medicine hepatobiliary study could further evaluate this finding. 2. Diminished size of a left ovarian cyst [facility], , 07/08/2024 1:28 PM
[2024-07-08] MEDS ORDERED: NALOXONE 0.4 MG/ML 1 ML VIAL IV PRN (15:06)
[2024-07-08] MEDS ORDERED: MAG HYDROX/AL HYDROX/SIMETH 30 ML CUP PO PRN (15:06)
[2024-07-08] MEDS: HYOSCYAMINE SULFATE 0.125 MG TAB PO STA (16:08)
[2024-07-08] MEDS: LIDOCAINE VISCOUS 2% 15 ML CUP PO ONE (16:09)
[2024-07-08] MEDS ORDERED: ACETAMINOPHEN TAB 325 MG TAB PO PRN (19:12)
[2024-07-08] MEDS ORDERED: HYDROcodone/APAP 5-325MG 1 EACH TAB PO PRN (19:38)
[2024-07-08] MEDS: MORPHINE SULFATE 4 MG/ML SYRINGE IV PRN (19:50)
[2024-07-08] MEDS: ONDANSETRON 4 MG/2 ML VIAL IVP PRN (19:50)
--- NOTE | 2024-07-08 19:51 | P.GSHP ---
History of Present Illness Patient is a 48 yo female w/ history of multiple ablations of maurer's esophagus and recent lap robert presenting with epigastric pain. Patient was seen in clinic for post operative follow up and patient is now complaining of epigas tric abdominal pain. Patient denies any alleviating factors and states pain has been consistent throught the night. Prior to the previous night patient states she was doing well after surgery. Patient tolerating diet, denies fevers, chills, shortness of breath or chest pain. Of note, patient states she has one more ablation to go and is currently on a medication for maurer's esophagus that is not available in the [place]. - Constitutional Constitutional: Reports as per HPI Past Medical History Past Medical History: Fibromyalgia, GERD/Reflux, Osteoarthritis (OA) Additional Past Medical History / Comment(s): Hepatitis A (19 yrs old). IBS & Crohns & gastritis, hernia, barretts esophagus. current right knee pain History of Any Multi-Drug Resistant Organisms: None Reported Past Surgical History: Cholecystectomy, Hysterectomy, Tonsillectomy Additional Past Surgical History / Comment(s): Exploratory EGD's and Colono scopies, sinus surg, all teeth removed, esophageal ablation Past Anesthesia/Blood Transfusion Reactions: No Reported Reaction Past Psychological History: Depression Smoking Status: Current every day smoker, Vaper Past Alcohol Use History: None Reported Past Drug Use History: Marijuana - Past Family History Mother Family Medical History: No Reported History Father Family Medical History: Cancer, Diabetes Mellitus, Myocardial Infarction ([place]) Additional Family Medical History / Comment(s): esophageal ca Medications and Allergies Home Medications Medication Instructions Recorded Confirmed Type Vonoprazan Fumarate [Voquezna] 10 mg PO DAILY 05/21/24 07/08/24 History Allergies Allergy/AdvReac Type Severity Reaction Status Date / Time latex Allergy Unknown SWELLING, Verified 07/08/24 14:19 RASH, ITCHING adhesive tape AdvReac Mild Rash/Hives Verified 07/08/24 14:19 Surgical - Exam Osteopathic Statement: *. No significant issues noted on an osteopathic structural exam other than those noted in the History and Physical/Consult. Vital Signs Temp Pulse Resp BP Pulse Ox 97.5 F L 60 20 160/101 100 07/08/24 10:49 07/08/24 10:49 07/08/24 10:49 07/08/24 10:49 07/08/24 10:49 gen: nad cv: rrr pul: non labored breathing abd: soft, non distended, tender to palpation in the epigastric region only, surgical incisions are c/d/i Results - Labs 07/08/24 11:30 07/08/24 11:30 Abnormal Lab Results - Last 24 Hours (Table) 07/08/24 07/08/24 Range/Units 11:30 11:30 WBC 11.0 H (3.8-10.6) k/uL Glucose 109 H (74-99) mg/dL ALT 48 H (4-34) U/L Diabetes panel 07/08/24 Range/Units 11:30 Sodium 139 (137-145) mmol/L Potassium 4.3 (3.5-5.1) mmol/L Chloride 105 (98-107) mmol/L Carbon Dioxide 23 (22-30) mmol/L BUN 17 (7-17) mg/dL Creatinine 0.74 (0.52-1.04) mg/dL Glucose 109 H (74-99) mg/dL Calcium 9.8 (8.4-10.2) mg/dL AST 31 (14-36) U/L ALT 48 H (4-34) U/L Alkaline Phosphatase 61 (38-126) U/L Total Protein 7.9 (6.3-8.2) g/dL Albumin 4.4 (3.5-5.0) g/dL Calcium panel 07/08/24 Range/Units 11:30 Calcium 9.8 (8.4-10.2) mg/dL Albumin 4.4 (3.5-5.0) g/dL Pituitary panel 07/08/24 Range/Units 11:30 Sodium 139 (137-145) mmol/L Potassium 4.3 (3.5-5.1) mmol/L Chloride 105 (98-107) mmol/L Carbon Dioxide 23 (22-30) mmol/L BUN 17 (7-17) mg/dL Creatinine 0.74 (0.52-1.04) mg/dL Glucose 109 H (74-99) mg/dL Calcium 9.8 (8.4-10.2) mg/dL Adrenal panel 07/08/24 Range/Units 11:30 Sodium 139 (137-145) mmol/L Potassium 4.3 (3.5-5.1) mmol/L Chloride 105 (98-107) mmol/L Carbon Dioxide 23 (22-30) mmol/L BUN 17 (7-17) mg/dL Creatinine 0.74 (0.52-1.04) mg/dL Glucose 109 H (74-99) mg/dL Calcium 9.8 (8.4-10.2) mg/dL Total Bilirubin 0.9 (0.2-1.3) mg/dL AST 31 (14-36) U/L ALT 48 H (4-34) U/L Alkaline Phosphatase 61 (38-126) U/L Total Protein 7.9 (6.3-8.2) g/dL Albumin 4.4 (3.5-5.0) g/dL Assessment and Plan Assessment: 48 yo female s/p lap robert s/p ablation of maurer's esophagus -give GI cocktail -ctap demonstrate trace fluid collection in gallbladder fossa 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
--- NOTE | 2024-07-08 21:53 | P.OP ---
Date of Procedure: 06/12/24 Preoperative Diagnosis: cholelithiasis Postoperative Diagnosis: cholelithiasis Procedure(s) Performed: lap robert Anesthesia: EMERSONA Surgeon: Alec Washington Pathology: other (gallbladder) Condition: stable Disposition: PACU Indications for Procedure: right upper quadrant pain Operative Findings: inflammed gallbladder Description of Procedure: The patietn was brought to the operative suite where she was cleaned and draped in sterile fashion. A timeout was performed and everyone agreed with the information recited. An upper quadrant incision was made using a #15 blade. 3 more working ports were placed in the mid abdomen and right upper quadrant, the 5mm port was replaced with an 8 and the robot was docked. Gallbladder was grasped cephalad and laterally and I began my dissection from lateral to medial dissecting out the cystic duct first and then the cystic artery. Once the triangle of safety was demonstrated. the duct was triple clipped and ligated and the cystic artery was triple clipped and ligated as well. The gallblader was removed off of the liver in a controlled fashion. The gallbladder was then placed in an endocatch bag and removed out of the left upper quadrant incision. A hemostatic timeout was perfomed and no bleeding was observed. The left upper quadrant incision was closed using a yasmany bridgett with an 0-vicryl. The rest of the instruments was removed out of the abdomen under direct visualization. The skin was closed using 4-0 vicryl. The patient was cleaned and transported to pacu in stable condition. The patient tolerated the procedure without difficulty.
[2024-07-09 08:27] LABS: HGB 14.5 gm/dL (11.4-16.0); MCH 31.3 pg (25.0-35.0); MCHC 33.1 g/dL (31.0-37.0); MCV 94.7 fL (80.0-100.0); Mean Platelet Volume 8.1; Platelet Count 228 k/uL (150-450); RBC 4.65 m/uL (3.80-5.40); RDW 12.1 % (11.5-15.5); WBC 10.5 k/uL (3.8-10.6)
[2024-07-09 08:37] LABS: ALT 43 U/L (4-34); AST 28 U/L (14-36); African American GFR (CKD) 88 (>60 ml/min/1.73 sqM); Albumin 4.2 g/dL (3.5-5.0); Alkaline Phosphatase 69 U/L (38-126); Anion Gap 8 mmol/L; Blood Urea Nitrogen 10 mg/dL (7-17); Calcium 9.4 mg/dL (8.4-10.2); Carbon Dioxide 26 mmol/L (22-30); Chloride 105 mmol/L (98-107); Glucose 116 mg/dL (74-99); Magnesium 2.2 mg/dL (1.6-2.3); Non-African American GFR(CKD) 76 (>60 ml/min/1.73 sqM); Potassium 4.1 mmol/L (3.5-5.1); Sodium 139 mmol/L (137-145); Total Bilirubin 0.7 mg/dL (0.2-1.3); Total Protein 7.4 g/dL (6.3-8.2)
[2024-07-09] MEDS: [UNRECOGNIZED DRUG - OTHER] PO SCH (08:58)
[2024-07-09] MEDS: PANTOPRAZOLE SODIUM 40 MG GRANULE PKT PO SCH (09:02)
[2024-07-09 09:29] VITALS: BP 136/78; PULSE 84; RESP 17; TEMP 97.4
--- NOTE | 2024-07-09 10:38 | P.DS ---
Providers Date of admission: 07/08/24 15:07 Expected date of discharge: 07/09/24 Attending physician: Alec Washington DO Consults: 07/08/24 19:01 Consult Physician Stat Consulting Provider: Albert Johnson Consult Reason/Comments: medical management Do you want consulting provider notified?: Yes Primary care physician: Tristan Bergman Hospital Course: Discharge diagnosis 1. Status post laparoscopic cholecystectomy on June 27, 2024 2. Status post ablation of Maurer's esophagus 3. Ctap demonstrate trace fluid collection in gallbladder fossa admissions representative of post operative changes Hospital course Patient is a 48 yo female w/ history of multiple ablations of maurer's esophagus and recent lap robert presenting with epigastric pain. Patient was seen in clinic for post operative follow up and patient is now complaining of epigastric abdominal pain. Patient states she has one more ablation to go with her GI specialist in July and is currently on a medication for maurer's esophagus that is not available in the [place]. Patient had a CT scan abdomen pelvis completed that had demonstrated trace fluid collection in the gallbladder fossa. Dr. Washington reviewed CAT scan results and felt that they represented postoperative changes. Patient reports her overall pain is better than when she came in with. She denies any chest pain. She has been able to tolerate diet. Her pain is controlled. She is afebrile. She has been up and ambulating. She is stable for discharge. Please refer to chart for any further details. Patient Condition at Discharge: Stable Plan - Discharge Summary New Discharge Prescriptions: Continue Vonoprazan Fumarate [Voquezna] 10 mg PO DAILY Discharge Medication List Vonoprazan Fumarate [Voquezna] 10 mg PO DAILY 05/21/24 [History] Follow up Appointment(s)/Referral(s): Tristan Bergman MD [Primary Care Provider] - 1-2 days Activity/Diet/Wound Care/Special Instructions: Activity: As tolerated. Take breaks as needed. Diet: Low-fat diet. Special Instructions: Take all of your medications as directed and remember to keep all of your doctor's appointments and follow-up as needed. Thank you for allowing us to participate in your care, it was truly a pleasure having you for our patient!!! Discharge Disposition: HOME SELF-CARE
--- NOTE | 2024-07-09 15:10 | P.CONS ---
History of Present Illness - Reason for Consult Consult date: 07/09/24 Medical Management Requesting physician: Alec Washington - History of Present Illness History of Presenting Illness: Patient is a very pleasant 48-year-old female with a past medical history of fibromyalgia, GERD with Rowley's esophagus, IBS, depression, cannabis use, and nicotine dependence via vaping. She presented to the hospital on 07/08/2023 secondary to reports of chest/epigastric pain status post recent laparoscopic cholecystectomy completed on 06/27/2024. Upon arrival to our facility, patient underwent evaluation in the emergency department. Vital signs upon arrival show blood pressure 160/101, heart rate 60, respiratory rate 20, temp 97.5 F, and SpO2 100% on room air. EKG was completed showing normal sinus mechanism at 67 bpm. Chest x-ray completed negative for acute cardiopulmonary process. Labs completed and reviewed. CBC showing leukocytosis with WBC count of 11.0 otherwise normal findings. BMP unremarkable. Blood glucose 109. Liver profile showing elevated ALT of 48 otherwise normal findings. Troponin was negative at less than 0.012. Lipase normal findings at 96. CT abdomen and pelvis showing a small localized fluid collection, unable to rule out a biliary leak at the cholecystectomy site. Patient was admitted to general surgery team and we were consulted for medical management throughout hospitalization. Patient seen and fully evaluated at bedside this morning. She was ambulatory in room and reports feeling much better today compared to yesterday. Patient reports mild abdominal discomfort/bloating and a feeling of fullness. She denies any further episodes of nausea and tolerated breakfast well. Patient denies having any chest pain, palpitations, shortness of breath, cough or congestion, vomiting, or having any difficulties with or changes in her urination or bowel function. Troponins were trended x 2 and were both negative at less than 0.012. Review of systems: Pertinent positives and negatives as discussed in HPI, a complete review of systems was performed and all other systems are negative. Physical exam: Vital signs reviewed and stable. General: Nontoxic, no distress and appears stated age. Derm: Skin warm and dry, normal coloration for ethnicity. Head: Atraumatic, normocephalic and symmetric. Eyes: EOM's intact, no lid lag, and anicteric sclera Mouth: no lip lesions, mucus membranes moist Cardiovascular: regular rate and rhythm with normal S1S2, no murmur, positive posterior tibial pulses bilaterally, and cap refill < 2 seconds. Lungs: Respirations even, regular, and unlabored on room air. Lungs CTA bilaterally, no rhonchi, no rales, no wheezing, and no accessory muscle usage. Abdominal: soft, nontender to palpation, no guarding, no appreciable organomegaly Ext: ROM intact. No gross muscle atrophy, no edema, no contractures Neuro: Speech clear, face symmetrical and CN II-XII grossly intact with no noted focal neuro deficits Psych: Alert and oriented to person, place, time, and situation. Appropriate and pleasant affect. Assessment and Plan of Care: Epigastric/abdominal pain status post recent laparoscopic cholecystectomy -Patient mated under general surgery team, discussed plan of care with general surgery PA and general surgeon Dr. Washington. Fluid collection reported on CT pharmaceutical specialty representative of postoperative changes and normal finding. -Continue symptomatic care and pain management. -Zofran 4 mg IVP every 6 hours as needed for nausea or vomiting. -Continue Protonix 40 mg daily. -Tylenol 650 mg p.o. every 6 hours as needed for mild/moderate pain and morphine 4 mg IVP every 4 hours as needed for severe pain. GERD with Rowley's esophagitis. -Continue to follow-up outpatient with paver for scheduled ablation. -Continue daily medication regimen withVoquezna 10 mg daily. Data and imaging reviewed: As stated above in HPI Thank you for allowing us to participate in the care of this pleasant patient. Do not hesitate to contact us with questions. [facility] can be [facility] all hours of the day at [phone] or via [employer]. Patient was seen independently by Nurse Practitioner. This document was prepared using [employer] dictation software. Please allow for errors in social work faculty member while rare they do occur. Andrew Calvillo NP rendered care for this patient independently, reviewed the findings and plan as documented in the note above and agree with plan. I did not physically speak with or examine the patient on this date. Past Medical History Past Medical History: Fibromyalgia, GERD/Reflux, Osteoarthritis (OA) Additional Past Medical History / Comment(s): Hepatitis A (19 yrs old). IBS & Crohns & gastritis, hernia, barretts esophagus. current right knee pain History of Any Multi-Drug Resistant Organisms: None Reported Past Surgical History: Cholecystectomy, Hysterectomy, Tonsillectomy Additional Past Surgical History / Comment(s): Exploratory EGD's and Colonoscopies, sinus surg, all teeth removed, esophageal ablation Past Anesthesia/Blood Transfusion Reactions: No Reported Reaction Past Psychological History: Depression Smoking Status: Current every day smoker, Vaper Past Alcohol Use History: None Reported Past Drug Use History: Marijuana - Past Family History Mother Family Medical History: No Reported History Father Family Medical History: Cancer, Diabetes Mellitus, Myocardial Infarction (MT) Additional Family Medical History / Comment(s): esophageal ca Medications and Allergies Home Medications Medication Instructions Recorded Confirmed Type Vonoprazan Fumarate [Voquezna] 10 mg PO DAILY 05/21/24 07/08/24 History Allergies Allergy/AdvReac Type Severity Reaction Status Date / Time latex Allergy Unknown SWELLING, Verified 07/08/24 14:19 RASH, ITCHING adhesive tape AdvReac Mild Rash/Hives Verified 07/08/24 14:19 Physical Exam Vitals: Vital Signs Temp Pulse Pulse Pulse Resp BP BP 07/09/24 02:00 97.8 F 85 18 119/80 07/08/24 19:47 87 18 163/84 07/08/24 16:11 65 18 143/94 07/08/24 11:32 80 07/08/24 11:24 68 18 161/92 07/08/24 10:49 97.5 F L 60 20 160/101 Pulse Ox 07/09/24 02:00 96 07/08/24 19:47 97 07/08/24 16:11 98 07/08/24 11:32 07/08/24 11:24 97 07/08/24 10:49 100 Intake and Output 07/08/24 07/09/24 07/09/24 22:59 06:59 14:59 Other: # Voids 1 Results CBC & Chem 7: 07/09/24 08:16 07/09/24 08:16 Labs: Abnormal Lab Results - Last 24 Hours (Table) 07/08/24 07/08/24 Range/Units 11:30 11:30 WBC 11.0 H (3.8-10.6) k/uL Glucose 109 H (74-99) mg/dL ALT 48 H (4-34) U/L
== END 2024-07-09 11:02 | disposition home or self-care (01) ==
LOC: EC 10:44 → 6NMEDSUR 15:07 → 1SOBS 07-09 01:06
PROVIDERS: ADMIT Surgery; ATTEND Surgery
DX: R10.13 Epigastric pain (principal); D72.829 Elevated white blood cell count, unspecified; K22.70 Barrett's esophagus without dysplasia; K21.00 Gastro-esophageal reflux disease with esophagitis, without bleeding; K58.9 Irritable bowel syndrome, unspecified; M79.7 Fibromyalgia; F32.A Depression, unspecified; F17.290 Nicotine dependence, other tobacco product, uncomplicated; Z87.19 Personal history of other diseases of the digestive system; Z90.49 Acquired absence of other specified parts of digestive tract; Z79.899 Other long term (current) drug therapy; Z80.0 Family history of malignant neoplasm of digestive organs; Z82.49 Family history of ischemic heart disease and other diseases of the circulatory system; Z90.710 Acquired absence of both cervix and uterus; Z91.040 Latex allergy status
CPT/HCPCS: 96376; 96361; 96374; 96375; 99285; 36415; 93005; 80053 ×2; 83690; 83735; 84484; 85025; 85027; 71046; 74177; G0378 ×2; J2270; J2405; Q9967